=== PATIENT | male | born 1940 | race Caucasian/White ===

== ENCOUNTER 2017-10-12 04:14 | Emergency (ER) | payer MEDICARE, BC ==
[2017-10-12 04:37] VITALS: BP 150/65
--- NOTE | 2017-10-12 04:43 | EDM.PDOC ---
ED HPI GENERAL MEDICAL PROBLEM - General Chief Complaint: Respiratory Problem Stated Complaint: HEAVY CHEST [id number] Time Seen by Provider: 10/12/17 04:40 Source of Information: Reports: Patient History Limitations: Reports: No Limitations - History of Present Illness INITIAL COMMENTS - FREE TEXT/NARRATIVE: just got back in town from travelling from [place] where he was Dx with small right pleural effusion, en route did stop at a clinic and Dx with large pleural effusion. no CP but feels heavy & sob. Bilateral Hand Pain Score (Numeric/FACES): 4 - Related Data Allergies Allergy/AdvReac Type Severity Reaction Status Date / Time chlorhexidine Allergy Itching Verified 10/12/17 04:20 Home Meds: Home Meds Aspirin 325 mg PO DAILY 10/12/14 [History] Carvedilol 25 mg PO BID 10/12/14 [History] ClonazePAM [KlonoPIN] 0.25 mg PO BEDTIME 10/12/14 [History] Digoxin 125 mcg PO DAILY 10/12/14 [History] Furosemide 40 mg PO DAILY 10/12/14 [History] Levothyroxine 200 mcg PO ACBREAKFAST 10/12/14 [History] Qkuvb-3-Pryi Ethyl Esters [Lovaza] 2 gm PO BID 10/12/14 [History] Potassium Chloride [Klor-Con] 20 meq PO DAILY 10/12/14 [History] atorvaSTATin [Lipitor] 10 mg PO BEDTIME 10/12/14 [History] glipiZIDE [Glucotrol] 10 mg PO BID 10/12/14 [History] rOPINIRole [Requip] 1 mg PO DAILY 10/12/14 [History] Acetaminophen [Tylenol Arthritis Pain] 650 mg PO BID 10/12/17 [History] Amiodarone [Cordarone] 200 mg PO DAILY 10/12/17 [History] Benazepril [Lotensin] 5 mg PO DAILY 10/12/17 [History] Dextran 70/Hypromellose [Artificial Tears] 1 each OP BID 10/12/17 [History] Hydrocodone/Acetaminophen [Hydrocodon-Acetaminophn 10-325] 1 tab PO BID [History] Insulin Detemir [Levemir Flextouch] 6 unit SQ BEDTIME 10/12/17 [History] Nitroglycerin 0.4 mg SL ASDIRECTED 10/12/17 [History] Tamsulosin [Tamsulosin 24 Hr] 0.4 mg PO DAILY 10/12/17 [History] amLODIPine Besylate [Amlodipine Besylate] 5 mg PO DAILY 10/12/17 [History] hydrALAZINE HCl [Hydralazine HCl] 37.5 mg PO BID 10/12/17 [History] metOLazone [Metolazone] 2.5 mg PO DAILY PRN 10/12/17 [History] Past Medical History HEENT History: Reports: Impaired Vision Musculoskeletal History: Reports: Arthritis Other Neuro History: restless leg syndrome Endocrine/Metabolic History: Reports: Diabetes, Type II, Hypothyroidism Social & Family History - Family History Family Medical History: Noncontributory - Tobacco Use Smoking Status *Q: Former Smoker Used Tobacco, but Quit: Yes Month/Year Tobacco Last Used: 09/1992 - Caffeine Use Caffeine Use: Reports: Soda - Recreational Drug Use Recreational Drug Use: No ED ROS GENERAL - Review of Systems Review Of Systems: ROS reveals no pertinent complaints other than HPI. ED EXAM, GENERAL - Physical Exam Exam: See Below Exam Limited By: No Limitations General Appearance: Alert, WD/WN, Anxious, Mild Distress Ears: Hearing Grossly Normal Throat/Mouth: Normal Voice, No Airway Compromise Head: Atraumatic Neck: Non-Tender, Full Range of Motion Respiratory/Chest: No Accessory Muscle Use, Decreased Breath Sounds, Rhonchi, Other (right decrease BS) Cardiovascular: Regular Rate, Rhythm GI/Abdominal: Soft, Non-Tender Extremities: Pedal Edema Neurological: Alert, Oriented, Normal Cognition, Normal Gait, No Motor/Sensory Deficits Psychiatric: Normal Affect, Normal Mood Skin Exam: Warm, Dry, Normal Color Lymphatic: No Adenopathy Course - Vital Signs Last Recorded V/S: Last Vital Signs Temp 36.9 C 10/12/17 04:23 Pulse 71 10/12/17 04:23 Resp 20 10/12/17 04:23 BP 150/65 H 10/12/17 04:23 Pulse Ox 91 L 10/12/17 04:23 - Orders/Labs/Meds Orders: Active Orders 24 hr Category Date Time Status EKG 12 Lead [EKG Documentation Completion] [RC] STAT Care 10/12/17 04:36 Active Chest 1V Frontal [CR] Urgent Exams 10/12/17 04:37 Taken Labs: Laboratory Tests 10/12/17 10/12/17 Range/Units 04:46 04:46 WBC 13.9 H (5.0-10.0) 10^3/uL RBC 5.22 (4.6-6.2) 10^6/uL Hgb 15.0 (14.0-18.0) g/dL Hct 46.5 (40.0-54.0) % MCV 89.1 (80-100) fL MCH 28.7 (27.0-34.0) pg MCHC 32.3 L (33.0-35.0) g/dL Plt Count 204 (150-450) 10^3/uL Neut % (Auto) 74.3 (42.2-75.2) % Lymph % (Auto) 10.7 L (20.5-50.1) % [place] % (Auto) 9.9 H (2-8) % Eos % (Auto) 5.0 H (1.0-3.0) % Baso % (Auto) 0.1 (0.0-1.0) % Sodium 135 (135-145) mmol/L Potassium 4.1 (3.6-5.0) mmol/L Chloride 101 (101-111) mmol/L Carbon Dioxide 24.0 (21.0-31.0) mmol/L Anion Gap 14.1 BUN 17 (7-18) mg/dL Creatinine 1.2 (0.6-1.3) mg/dL Est Cr Clr Drug Dosing 52.37 mL/min Estimated GFR (MDRD) 59 BUN/Creatinine Ratio 14.16 Glucose 190 H (74-105) mg/dL Calcium 8.7 (8.4-10.2) mg/dl Total Bilirubin 0.7 (0.2-1.0) mg/dL AST 21 (10-42) IU/L ALT 19 (10-60) IU/L Alkaline Phosphatase 81 (42-121) IU/L Troponin I < 0.02 (0.00-0.02) ng/ml B-Natriuretic Peptide 67 (0-100) pg/ml Total Protein 7.2 (6.7-8.2) g/dl Albumin 3.7 (3.2-5.5) g/dl Globulin 3.5 Albumin/Globulin Ratio 1.06 - Re-Assessments/Exams Free Text/Narrative Re-Assessment/Exam: 10/12/17 05:[address] Goss who kindly accepted pt. Departure - Departure Time of Disposition: 05:53 Disposition: DC/Tfer to Acute Hospital 02 Condition: Fair Clinical Impression: Pleural effusion - Discharge Information Forms: Interfacility Transfer EMTALA - My Orders Last 24 Hours: My Active Orders 10/12/17 04:36 EKG 12 Lead [EKG Documentation Completion] [RC] STAT 10/12/17 04:37 Chest 1V Frontal [CR] Urgent - Assessment/Plan Last 24 Hours: My Active Orders 10/12/17 04:36 EKG 12 Lead [EKG Documentation Completion] [RC] STAT 10/12/17 04:37 Chest 1V Frontal [CR] Urgent
[2017-10-12 05:11] LABS: ANION GAP 14.1; CHLORIDE,CL 101 mmol/L (101-111); SODIUM,NA 135 mmol/L (135-145)
--- NOTE | 2017-10-13 16:59 | EKG ---
10/12/2017 - ANTONIO STOUT - TIME: 05:04 a.m. FINDINGS: As per reading, atrial sinus ventricular paced complexes. [facility] /[id number]
== END 2017-10-12 07:15 ==
LOC: DL.ED 04:14
DX: J90 Pleural effusion, not elsewhere classified (principal); E11.9 Type 2 diabetes mellitus without complications; Z88.8 Allergy status to other drugs, medicaments and biological substances; Z79.899 Other long term (current) drug therapy; Z79.82 Long term (current) use of aspirin; Z87.891 Personal history of nicotine dependence
CPT/HCPCS: 36415; 71045; 80053; 83880; 84484; 85025; 93005; 93010; 99284; 99285

== ENCOUNTER 2018-03-17 17:02 | Emergency (ER) | payer MEDICARE, BC ==
[2018-03-17 17:15] VITALS: BP 155/66
--- NOTE | 2018-03-17 17:45 | EDM.PDOC ---
ED HPI GENERAL MEDICAL PROBLEM - General Stated Complaint: AMBULANCE Time Seen by Provider: 03/17/18 17:30 Source of Information: Reports: Patient History Limitations: Reports: No Limitations - History of Present Illness INITIAL COMMENTS - FREE TEXT/NARRATIVE: This 77 yo male patient was brought to the ED due to increased shortness of breath and dizziness that started today. EMS reports the patient's oxygen saturation was 50% upon arrival. The patient reports he got up to go to the bathroom and shower at about noon today when he fell due to weakness. The patient reports he did make it back to bed and took a nap. When he got up from his nap, the patient reports increased shortness of breath and weakness. The patient reports he does have lung cancer. The patient reports that he is being treated by Dr. Gu, but he was too weak to have treatment in January or the beginning of February. The patient is supposed to see Dr. Gu again in March. Onset: Today Duration: Constant Location: Reports: Generalized Quality: Reports: Other Severity: Moderate Improves with: Reports: None Worsens with: Reports: None Associated Symptoms: Reports: Shortness of Breath, Weakness Right Thoracic Pain Score (Numeric/FACES): 7 - Related Data Allergies Allergy/AdvReac Type Severity Reaction Status Date / Time chlorhexidine Allergy Itching Verified 10/12/17 04:20 Home Meds: Home Meds Aspirin 325 mg PO DAILY 10/12/14 [History] Carvedilol 25 mg PO BID 10/12/14 [History] ClonazePAM [KlonoPIN] 0.25 mg PO BEDTIME 10/12/14 [History] Digoxin 125 mcg PO DAILY 10/12/14 [History] Furosemide 40 mg PO DAILY 10/12/14 [History] Levothyroxine 200 mcg PO ACBREAKFAST 10/12/14 [History] Tptyp-5-Sijv Ethyl Esters [Lovaza] 2 gm PO BID 10/12/14 [History] Potassium Chloride [Klor-Con] 20 meq PO DAILY 10/12/14 [History] atorvaSTATin [Lipitor] 10 mg PO BEDTIME 10/12/14 [History] glipiZIDE [Glucotrol] 10 mg PO BID 10/12/14 [History] rOPINIRole [Requip] 1 mg PO DAILY 10/12/14 [History] Acetaminophen [Tylenol Arthritis Pain] 650 mg PO BID 10/12/17 [History] Amiodarone [Cordarone] 200 mg PO DAILY 10/12/17 [History] Benazepril [Lotensin] 5 mg PO DAILY 10/12/17 [History] Dextran 70/Hypromellose [Artificial Tears] 1 each OP BID 10/12/17 [History] Hydrocodone/Acetaminophen [Hydrocodon-Acetaminophn 10-325] 1 tab PO BID [History] Insulin Detemir [Levemir Flextouch] 6 unit SQ BEDTIME 10/12/17 [History] Nitroglycerin 0.4 mg SL ASDIRECTED 10/12/17 [History] Tamsulosin [Tamsulosin 24 Hr] 0.4 mg PO DAILY 10/12/17 [History] amLODIPine Besylate [Amlodipine Besylate] 5 mg PO DAILY 10/12/17 [History] hydrALAZINE HCl [Hydralazine HCl] 37.5 mg PO BID 10/12/17 [History] metOLazone [Metolazone] 2.5 mg PO DAILY PRN 10/12/17 [History] Past Medical History HEENT History: Reports: Impaired Vision Cardiovascular History: Reports: Heart Failure, High Cholesterol, Hypertension, AR, Stents, Other (See Below) Other Cardiovascular History: chronic pedal edema Respiratory History: Reports: Other (See Below) Other Respiratory History: Lung Ca Genitourinary History: Reports: Renal Disease Musculoskeletal History: Reports: Arthritis Other Neuro History: restless leg syndrome Endocrine/Metabolic History: Reports: Diabetes, Type II, Hypothyroidism Oncologic (Cancer) History: Reports: Lung - Past Surgical History Cardiovascular Surgical History: Reports: AICD, Pacer Social & Family History - Family History Family Medical History: Noncontributory - Tobacco Use Smoking Status *Q: Never Smoker Second Hand Smoke Exposure: No - Caffeine Use Caffeine Use: Reports: Soda - Recreational Drug Use Recreational Drug Use: No ED ROS GENERAL - Review of Systems Review Of Systems: ROS reveals no pertinent complaints other than HPI. ED EXAM, GENERAL - Physical Exam Exam: See Below Exam Limited By: No Limitations General Appearance: Alert, WD/WN, Moderate Distress Eye Exam: Bilateral Eye: EOMI, Normal Inspection, PERRL Ears: Normal External Exam, Normal Canal, Hearing Grossly Normal, Normal TMs Nose: Normal Inspection, Normal Mucosa, No Blood Throat/Mouth: Normal Inspection, Normal Lips, Normal Teeth, Normal Gums, Normal Oropharynx, Normal Voice, No Airway Compromise Head: Atraumatic, Normocephalic Neck: Normal Inspection, Supple, Non-Tender, Full Range of Motion Respiratory/Chest: Decreased Breath Sounds, Rhonchi (diffuse) Cardiovascular: Normal Peripheral Pulses, Regular Rate, Rhythm, No Edema, No Gallop, No JVD, No Murmur, No Rub GI/Abdominal: Normal Bowel Sounds, Soft, Non-Tender, No Organomegaly, No Distention, No Abnormal Bruit, No Mass (Male) Exam: Deferred Rectal (Males) Exam: Deferred Back Exam: Normal Inspection, Full Range of Motion, NT Extremities: Normal Inspection, Normal Range of Motion, Non-Tender, Normal Capillary Refill, No Pedal Edema Neurological: Alert, Oriented, CN II-XII Intact, Normal Cognition, Normal Gait, Normal Reflexes, No Motor/Sensory Deficits Psychiatric: Normal Affect, Normal Mood Skin Exam: Warm, Dry, Intact, Normal Color, No Rash Lymphatic: No Adenopathy Course - Vital Signs Last Recorded V/S: Last Vital Signs Temp 37.8 C 03/17/18 18:49 Pulse 92 03/17/18 17:08 Resp 18 03/17/18 17:08 BP 155/66 H 03/17/18 17:08 Pulse Ox - Orders/Labs/Meds Orders: Active Orders 24 hr Category Date Time Status EKG Documentation Completion [RC] URGENT Care 03/17/18 17:11 Ordered Chest 1V Frontal [CR] Urgent Exams 03/17/18 17:11 Ordered ABG [BLOOD GAS ARTERIAL] [BG] Stat Lab 03/17/18 18:43 Ordered CULTURE BLOOD [BC] Stat Lab 03/17/18 17:12 Ordered CULTURE BLOOD [BC] Stat Lab 03/17/18 17:15 Ordered Labs: Laboratory Tests 03/17/18 03/17/18 03/17/18 Range/Units 17:23 17:23 17:23 WBC 11.6 H (5.0-10.0) 10^3/uL RBC 4.49 L (4.6-6.2) 10^6/uL Hgb 13.1 L D (14.0-18.0) g/dL Hct 40.9 (40.0-54.0) % MCV 91.1 (80-100) fL MCH 29.2 (27.0-34.0) pg MCHC 32.0 L (33.0-35.0) g/dL Plt Count 185 (150-450) 10^3/uL Neut % (Auto) 87.1 H (42.2-75.2) % Lymph % (Auto) 6.3 L (20.5-50.1) % [place] % (Auto) 6.1 (2-8) % Eos % (Auto) 0.2 L (1.0-3.0) % Baso % (Auto) 0.3 (0.0-1.0) % Sodium 133 L (135-145) mmol/L Potassium 5.1 H (3.6-5.0) mmol/L Chloride 98 L (101-111) mmol/L Carbon Dioxide 20.0 L (21.0-31.0) mmol/L Anion Gap 20.1 BUN 25 H (7-18) mg/dL Creatinine 1.4 H (0.6-1.3) mg/dL Est Cr Clr Drug Dosing 42.52 mL/min Estimated GFR (MDRD) 49 BUN/Creatinine Ratio 17.85 Glucose 267 H (74-105) mg/dL Lactic Acid 4.0 H (0.5-2.2) mmol/L Calcium 8.5 (8.4-10.2) mg/dl Total Bilirubin 1.1 H (0.2-1.0) mg/dL AST 43 H (10-42) IU/L ALT 17 (10-60) IU/L Alkaline Phosphatase 56 (42-121) IU/L Troponin I 0.08 H* (0.00-0.02) ng/ml B-Natriuretic Peptide 371 H (0-100) pg/ml Total Protein 6.8 (6.7-8.2) g/dl Albumin 2.7 L (3.2-5.5) g/dl Globulin 4.1 Albumin/Globulin Ratio 0.66 Meds: Medications Discontinued Medications Generic Name Dose Route Start Last Admin Trade Name Freq PRN Reason Stop Dose Admin Acetaminophen 650 mg 03/17/18 17:54 03/17/18 17:58 Tylenol PO 03/17/18 17:55 650 mg NOW ONE Administration Departure - Departure Time of Disposition: 19:01 Disposition: DC/Tfer to Acute Hospital 02 Condition: Fair Clinical Impression: Pneumonia Qualifiers: Pneumonia type: due to unspecified organism Laterality: unspecified laterality Lung location: unspecified part of lung Qualified Code(s): J18.9 - Pneumonia, unspecified organism - Discharge Information *PRESCRIPTION DRUG MONITORING PROGRAM REVIEWED*: Not Applicable *COPY OF PRESCRIPTION DRUG MONITORING REPORT IN PATIENT KENIA: Not Applicable Forms: Interfacility Transfer EMTALA Care Plan Goals: Discussed the patient's history, examination, lab, x-ray and EKG results with Dr Yancey. Dr. Yancey accepted the patient for continued evaluation and further management as an inpatient at [facility] in [place]. The patient will be transported by [facility]. - My Orders Last 24 Hours: My Active Orders 03/17/18 17:11 EKG Documentation Completion [RC] URGENT Chest 1V Frontal [CR] Urgent 03/17/18 17:12 CULTURE BLOOD [BC] Stat 03/17/18 17:15 CULTURE BLOOD [BC] Stat 03/17/18 18:43 ABG [BLOOD GAS ARTERIAL] [BG] Stat - Assessment/Plan Last 24 Hours: My Active Orders 03/17/18 17:11 EKG Documentation Completion [RC] URGENT Chest 1V Frontal [CR] Urgent 03/17/18 17:12 CULTURE BLOOD [BC] Stat 03/17/18 17:15 CULTURE BLOOD [BC] Stat 03/17/18 18:43 ABG [BLOOD GAS ARTERIAL] [BG] Stat
[2018-03-17 17:52] LABS: ANION GAP 20.1
[2018-03-17] MEDS: Acetaminophen 325 MG Tab PO ONE (17:58)
[2018-03-17 18:58] LABS: BASE EXCESS ARTERIAL 1 mmol/L ((-2)-(+3)); BICARBONATE,ARTERIAL 24.3 mmol/L (22-26); O2 DELIVERY DEVICE SIMPLE MASK; O2 SATURATION ARTERIAL 95 % (95-100); PCO2 ARTERIAL 35 mmHg (35-45); PO2 ARTERIAL 74 mmHg (70-100)
[2018-03-17 19:01] LABS: ALLEN TEST POSITIVE; O2 FLOW RATE 10
== END 2018-03-17 19:35 ==
LOC: DL.ED 17:02
DX: J18.9 Pneumonia, unspecified organism (principal); I50.9 Heart failure, unspecified; I25.2 Old myocardial infarction; Z95.5 Presence of coronary angioplasty implant and graft; C34.90 Malignant neoplasm of unspecified part of unspecified bronchus or lung; Z79.4 Long term (current) use of insulin; Z79.82 Long term (current) use of aspirin; Z79.899 Other long term (current) drug therapy; I11.0 Hypertensive heart disease with heart failure
CPT/HCPCS: 36415; 36600; 71045; 80053; 82803; 83605; 83880; 84484; 85025; 87040; 93005; 99285; A9270

== ENCOUNTER 2019-02-09 03:44 | Emergency (ER) | payer MEDICARE, BC ==
[2019-02-09] MEDS ORDERED: predniSONE 20 MG Tab PO ONE (03:45)
[2019-02-09] MEDS ORDERED: Albuterol/Ipratropium 3.0-0.5 MG/3 ML Neb Soln INH ONE (03:45)
[2019-02-09 04:03] VITALS: BP 138/75; PULSE 69
--- NOTE | 2019-02-09 04:13 | EDM.PDOC ---
ED HPI GENERAL MEDICAL PROBLEM - General Chief Complaint: Respiratory Problem Stated Complaint: TROUBLE BREATHING Time Seen by Provider: 02/09/19 04:08 Source of Information: Reports: Patient, RN History Limitations: Reports: No Limitations - History of Present Illness INITIAL COMMENTS - FREE TEXT/NARRATIVE: 29-year-old male who presents to the ER with complaints of shortness of breath. Patient reports shortness of breath began 4 hours ago. He reports a history of lung cancer which she states is in remission. Patient states he was in [place] at the beginning of the month and was checked with all his lab results and chest Xray normal. He reports he was given an albuterol inhaler which he used 2 hours prior to his ER visit with no relief. He does not smoke.he denies any fevers, chills, chest pain, palpitations, cough or leg swelling at this time. He does also admit to mild shortness of breath on a daily basis. Treatments LACTATION CONSULTANT: Reports: Breathing Treatments Anterior Chest Pain Score (Numeric/FACES): 3 Right Lower Back Pain Score (Numeric/FACES): 4 - Related Data Allergies Allergy/AdvReac Type Severity Reaction Status Date / Time chlorhexidine Allergy Itching Verified 02/09/19 04:04 Home Meds: Home Meds Aspirin 325 mg PO DAILY 10/12/14 [History] ClonazePAM [KlonoPIN] 0.25 mg PO BEDTIME 10/12/14 [History] Digoxin 125 mcg PO DAILY 10/12/14 [History] Furosemide 40 mg PO DAILY 10/12/14 [History] Levothyroxine 200 mcg PO ACBREAKFAST 10/12/14 [History] Swira-6-Zkcl Ethyl Esters [Lovaza] 2 gm PO BID 10/12/14 [History] Potassium Chloride [Klor-Con] 20 meq PO DAILY 10/12/14 [History] atorvaSTATin [Lipitor] 10 mg PO BEDTIME 10/12/14 [History] carvediloL [Carvedilol] 25 mg PO BID 10/12/14 [History] glipiZIDE [Glucotrol] 10 mg PO BID 10/12/14 [History] rOPINIRole [Requip] 1 mg PO DAILY 10/12/14 [History] Acetaminophen [Tylenol Arthritis Pain] 650 mg PO BID 10/12/17 [History] Amiodarone [Cordarone] 200 mg PO DAILY 10/12/17 [History] Benazepril [Lotensin] 5 mg PO DAILY 10/12/17 [History] Dextran 70/Hypromellose [Artificial Tears] 1 each OP BID 10/12/17 [History] Hydrocodone/Acetaminophen [Hydrocodon-Acetaminophn 10-325] 1 tab PO BID [History] Insulin Detemir [Levemir Flextouch] 6 unit SQ BEDTIME 10/12/17 [History] Nitroglycerin 0.4 mg SL ASDIRECTED 10/12/17 [History] Tamsulosin [Tamsulosin 24 Hr] 0.4 mg PO DAILY 10/12/17 [History] amLODIPine Besylate [Amlodipine Besylate] 5 mg PO DAILY 10/12/17 [History] hydrALAZINE HCl [Hydralazine HCl] 37.5 mg PO BID 10/12/17 [History] metOLazone [Metolazone] 2.5 mg PO DAILY PRN 10/12/17 [History] Past Medical History HEENT History: Reports: Impaired Vision Cardiovascular History: Reports: Heart Failure, High Cholesterol, Hypertension, AR, Stents, Other (See Below) Other Cardiovascular History: chronic pedal edema Respiratory History: Reports: Other (See Below) Other Respiratory History: Lung Ca Genitourinary History: Reports: Renal Disease Musculoskeletal History: Reports: Arthritis Other Neuro History: restless leg syndrome Endocrine/Metabolic History: Reports: Diabetes, Type II, Hypothyroidism Oncologic (Cancer) History: Reports: Lung - Past Surgical History Cardiovascular Surgical History: Reports: AICD, Pacer Social & Family History - Family History Family Medical History: Noncontributory - Tobacco Use Smoking Status *Q: Former Smoker Used Tobacco, but Quit: No - Caffeine Use Caffeine Use: Reports: Soda - Recreational Drug Use Recreational Drug Use: No ED ROS GENERAL - Review of Systems Review Of Systems: Comprehensive ROS is negative, except as noted in HPI. ED EXAM, GENERAL - Physical Exam Exam: See Below Exam Limited By: No Limitations General Appearance: Alert, WD/WN, No Apparent Distress Eye Exam: Bilateral Eye: PERRL Ears: Normal External Exam, Normal Canal, Hearing Grossly Normal, Normal TMs Nose: Normal Inspection, Normal Mucosa, No Blood Throat/Mouth: Normal Inspection, Normal Lips, Normal Teeth, Normal Gums, Normal Oropharynx, Normal Voice, No Airway Compromise Head: Atraumatic, Normocephalic Neck: Normal Inspection, Supple, Non-Tender, Full Range of Motion Respiratory/Chest: No Respiratory Distress, Chest Non-Tender, Crackles (noted in bilateral lower lobes) Cardiovascular: Normal Peripheral Pulses, Regular Rate, Rhythm, Other (pace rhythm) Neurological: Alert, Oriented, Normal Cognition, Normal Gait, No Motor/Sensory Deficits Psychiatric: Normal Affect, Normal Mood Skin Exam: Warm, Intact Lymphatic: No Adenopathy Course - Vital Signs Last Recorded V/S: Last Vital Signs Temp 96.7 F 02/09/19 03:55 Pulse 69 02/09/19 03:55 Resp 19 02/09/19 03:55 BP 138/75 02/09/19 03:55 Pulse Ox 95 02/09/19 03:55 - Orders/Labs/Meds Orders: Active Orders 24 hr Category Date Time Status Chest w Cont [CT] Urgent Exams 02/09/19 05:23 Stop Req Labs: Laboratory Tests 02/09/19 Range/Units 05:32 Sodium 138 (135-145) mmol/L Potassium 3.8 (3.6-5.0) mmol/L Chloride 105 (101-111) mmol/L Carbon Dioxide 22.0 (21.0-31.0) mmol/L Anion Gap 14.8 BUN 28 H (7-18) mg/dL Creatinine 1.2 (0.6-1.3) mg/dL Est Cr Clr Drug Dosing 50.73 mL/min Estimated GFR (MDRD) 59 Glucose 110 H (74-105) mg/dL Calcium 8.6 (8.4-10.2) mg/dl - Radiology Interpretation Free Text/Narrative:: PROCEDURE INFORMATION: Exam: XR Chest, 2 Views Exam date and time: 02/09/2019 4:39 AM Age: 78 years old Clinical indication: Shortness of breath; Prior surgery; Surgery date: 6+ months ; Surgery type: Pacemaker 2006 replaced in 2012 TECHNIQUE: Imaging protocol: XR of the chest Views: 2 views. COMPARISON: CR Chest 1V Frontal 03/17/2018 5:16 PM FINDINGS: Tubes, catheters and devices: A pacemaker defibrillator is placed via the left subclavian vein. Lungs: There are some linear and patchy opacities present in the lower hemithoraces bilaterally, findings could represent mild pulmonary edema. Pleural space: There is some haziness seen within the right lower hemithorax likely representing a small pleural effusion versus pleural thickening within the major fissure. Heart/Mediastinum: Unremarkable. No cardiomegaly. Bones/joints: Unremarkable. IMPRESSION: 1. Linear and patchy opacities in the lower hemithoraces bilaterally may represent mild pulmonary edema. 2. Probable pleural thickening or fluid seen within the major fissure on the right. - Re-Assessments/Exams Free Text/Narrative Re-Assessment/Exam: Reviewed results of chest xray with patient. Oxygen saturation on room air is 98 %. DuoNeb 1 vail administered every 4 hours prn and Prednisone 40 mg daily x 5 days send home with patient. Symptoms to return to the ER review with patient Departure - Departure Time of Disposition: 07:52 Disposition: Home, W Home Health Agency 06 Clinical Impression: SOB (shortness of breath) - Discharge Information *PRESCRIPTION DRUG MONITORING PROGRAM REVIEWED*: No *COPY OF PRESCRIPTION DRUG MONITORING REPORT IN PATIENT KENIA: No Instructions: Shortness of Breath, Adult, [id number] Forms: ED Department Discharge Additional Instructions: Follow up with PCP in one to two days. Sepsis Event Note - Evaluation Sepsis Screening Result: No Definite Risk - Focused Exam Vital Signs: Vital Signs Temp Pulse Resp BP Pulse Ox 02/09/19 03:55 96.7 F 69 19 138/75 95 Date Exam was Performed: 02/09/19 Time Exam was Performed: 07:51 - My Orders Last 24 Hours: My Active Orders 02/09/19 05:23 Chest w Cont [CT] Urgent - Assessment/Plan Last 24 Hours: My Active Orders 02/09/19 05:23 Chest w Cont [CT] Urgent
[2019-02-09 05:59] LABS: ANION GAP 14.8
[2019-02-09] MEDS ORDERED: Albuterol/Ipratropium 3.0-0.5 MG/3 ML Neb Soln ONE (07:53)
[2019-02-09] MEDS ORDERED: predniSONE 20 MG Tab ONE (07:54)
== END 2019-02-09 08:14 | disposition home or self-care (01) ==
LOC: DL.ED 03:44
DX: R06.02 Shortness of breath (principal); I11.0 Hypertensive heart disease with heart failure; I50.9 Heart failure, unspecified; E11.9 Type 2 diabetes mellitus without complications; E78.00 Pure hypercholesterolemia, unspecified; I25.2 Old myocardial infarction; E03.9 Hypothyroidism, unspecified; Z79.82 Long term (current) use of aspirin; Z79.84 Long term (current) use of oral hypoglycemic drugs; Z87.891 Personal history of nicotine dependence; Z79.899 Other long term (current) drug therapy; Z88.8 Allergy status to other drugs, medicaments and biological substances
CPT/HCPCS: 36415; 71046; 80048; 99283; 99285; A9270; J7620-GY

== ENCOUNTER 2019-08-10 16:35 | Emergency (ER) | payer MEDICARE, BC ==
--- NOTE | 2019-08-10 18:14 | EDM.PDOC ---
<Spenser Isbell - Last Filed: 08/10/19 19:53> ED HPI GENERAL MEDICAL PROBLEM - General Chief Complaint: Respiratory Problem Stated Complaint: HARD TIME BREATHING Time Seen by Provider: 08/10/19 18:13 - Related Data Allergies Allergy/AdvReac Type Severity Reaction Status Date / Time chlorhexidine Allergy Itching Verified 08/10/19 16:55 pneumococcal vaccine Allergy Cannot Verified 08/10/19 16:55 Remember Home Meds: Home Meds ClonazePAM [KlonoPIN] 0.25 mg PO BEDTIME 10/12/14 [History] Digoxin 125 mcg PO DAILY 10/12/14 [History] Furosemide 40 mg PO BID 10/12/14 [History] Levothyroxine 200 mcg PO ACBREAKFAST 10/12/14 [History] Ecddh-2-Vzyf Ethyl Esters [Lovaza] 2 gm PO BID 10/12/14 [History] atorvaSTATin [Lipitor] 10 mg PO BEDTIME 10/12/14 [History] carvediloL [Carvedilol] 12.5 mg PO BID 10/12/14 [History] rOPINIRole [Requip] 1 mg PO DAILY 10/12/14 [History] Acetaminophen [Tylenol Arthritis Pain] 650 mg PO BID 10/12/17 [History] Amiodarone [Cordarone] 200 mg PO DAILY 10/12/17 [History] Hydrocodone/Acetaminophen [Hydrocodon-Acetaminophn 10-325] 10 - 325 tab PO TID 10/12/17 [History] Nitroglycerin 0.4 mg SL ASDIRECTED 10/12/17 [History] Tamsulosin [Tamsulosin 24 Hr] 0.4 mg PO BEDTIME 10/12/17 [History] Aspirin [Adult Low Dose Aspirin EC] 81 mg PO DAILY 02/28/19 [History] Calcium Carbonate [Calcium] 600 mg PO BIDMEALS 02/28/19 [History] Potassium Chloride [Klor-Con 10] 20 meq PO DAILY 02/28/19 [History] Albuterol [Ventolin HFA] 2 puff IN Q6HR PRN 08/10/19 [History] Carboxymethylcellulose Sodium [Thera Tears] 1 drop EYEBOTH DAILY 08/10/19 [H istory] Docusate Sodium/Sennosides [Senokot-S] 2 tab PO BEDTIME 08/10/19 [History] Folic Acid 1 mg PO DAILY 08/10/19 [History] Hydrocortisone [Hydrocortisone 1% Crm] 2 applic TOP BID 08/10/19 [History] Mirtazapine 7.5 mg PO BEDTIME 08/10/19 [History] Ondansetron [Zofran Odt] 8 mg PO Q6H PRN 08/10/19 [History] Sacubitril/Valsartan [Entresto 49 mg-51 mg Tablet] 1 tab PO Q12HR 08/10/19 [History] dexAMETHasone [Dexamethasone] 4 mg PO BIDMEALS 08/10/19 [History] Course - Re-Assessments/Exams Free Text/Narrative Re-Assessment/Exam: 08/10/19 19:53 Discussed the patient's lab results and x-ray results with the patient. The patient reports that he did not have a lobectomy, but had fluid drained from his right lower lung. The patient reports he has had fluid in that area since that time. The patient reports his BNP has been elevated (3800 in June). The patient and his do not want to be admitted or transferred. They agreed to IV diuretics and IV antibiotics followed by an oral antibiotic for bronchitis. They would like to follow-up with Dr. Barrientos within the week for continued evaluation and management. The patient does understand his elevated D-dimer level and the inability to look for a blood clot in his lungs due to his kidney function and elevated BNP. Departure - Departure Time of Disposition: 19:58 Disposition: Home, Self-Care 01 Condition: Fair Clinical Impression: Elevated brain natriuretic peptide (BNP) level, Bronchitis - Discharge Information *PRESCRIPTION DRUG MONITORING PROGRAM REVIEWED*: Not Applicable *COPY OF PRESCRIPTION DRUG MONITORING REPORT IN PATIENT KENIA: Not Applicable Instructions: Acute Bronchitis, Adult, [id number] Forms: ED Department Discharge Care Plan Goals: The patient was advised of the examination, lab and x-ray results during the visit. The patient was given IV lasix and IV Rocephin while in the ED. The patient was discharged with a script for Azithromycin (250 mg) #6 to take 2 by mouth on day 1 and 1 by mouth on days 2-5. The patient should follow-up with his primary care facility within the week. If the patient has any additional symptoms or concerns, the patient should either return to the emergency department or visit his primary care facility. <Harsha Mcdonough - Last Filed: 08/11/19 08:16> ED HPI GENERAL MEDICAL PROBLEM - General Source of Information: Reports: Patient History Limitations: Reports: No Limitations - History of Present Illness INITIAL COMMENTS - FREE TEXT/NARRATIVE: Patient comes emergency department today with complaints of shortness of breath. Patient has a history of lung cancer and he had a lobectomy on the right lower lobe in the past. He does chronically struggle with shortness of breath intermittently although he has noticed for the past day and a half or so he has been more short of breath all the time. Especially when he is doing physical activity. He feels more weak than he typically does generalized. He has had no chest pain. No wheezing. No cough or congestion. No fever no chills. He has not been exposed to anyone ill or anyone with COVID. He did vomit a couple of days ago but he has no nausea currently. Does not smoke. No syncope dizziness or vertigo. Past Medical History HEENT History: Reports: Impaired Vision Cardiovascular History: Reports: Heart Failure, High Cholesterol, Hypertension, [place], Stents, Other (See Below) Other Cardiovascular History: chronic pedal edema Respiratory History: Reports: Other (See Below) Other Respiratory History: Lung Ca Genitourinary History: Reports: Renal Disease Musculoskeletal History: Reports: Arthritis Other Neuro History: restless leg syndrome Endocrine/Metabolic History: Reports: Diabetes, Type II, Hypothyroidism Oncologic (Cancer) History: Reports: Lung - Past Surgical History Cardiovascular Surgical History: Reports: AICD, Pacer Social & Family History - Family History Family Medical History: Noncontributory - Tobacco Use Smoking Status *Q: Never Smoker Second Hand Smoke Exposure: No - Caffeine Use Caffeine Use: Reports: None - Recreational Drug Use Recreational Drug Use: No ED ROS GENERAL - Review of Systems Review Of Systems: Comprehensive ROS is negative, except as noted in HPI. ED EXAM, GENERAL - Physical Exam Exam: See Below Exam Limited By: No Limitations General Appearance: Alert, WD/WN, No Apparent Distress Eye Exam: Bilateral Eye: EOMI Ears: Normal External Exam Nose: Normal Inspection Throat/Mouth: Normal Inspection, Normal Lips, Normal Oropharynx Head: Atraumatic, Normocephalic Neck: Normal Inspection, Supple, Non-Tender Respiratory/Chest: No Respiratory Distress, No Accessory Muscle Use, Chest Non-Tender, Decreased Breath Sounds (in the RLL. ), Rhonchi (RLL). No: Lungs Clear, Crackles, Rales, Wheezing, Accessory Muscle Use, Retractions Cardiovascular: Normal Peripheral Pulses, Regular Rate, Rhythm GI/Abdominal: Normal Bowel Sounds, Soft, Non-Tender (Male) Exam: Deferred Rectal (Males) Exam: Deferred Back Exam: Normal Inspection Extremities: Normal Inspection, Normal Range of Motion, Normal Capillary Refill Neurological: Alert, Oriented, Normal Cognition, No Motor/Sensory Deficits Psychiatric: Normal Affect, Normal Mood Skin Exam: Warm, Dry, Intact, Normal Color, No Rash EKG INTERPRETATION EKG Date: 08/10/19 Time: 18:34 Rhythm: Other (AV paced) Rate (Beats/Min): 69 [place]: Normal P-Wave: Present QRS: Wide Comparison: No Change Course - Vital Signs Last Recorded V/S: Last Vital Signs Temp 97.5 F 08/10/19 20:55 Pulse 70 08/10/19 20:55 Resp 18 08/10/19 20:55 BP 130/80 08/10/19 20:55 Pulse Ox 89 L 08/10/19 20:55 - Orders/Labs/Meds Orders: Active Orders 24 hr Category Date Time Status EKG Documentation Completion [RC] STAT Care 08/10/19 18:14 Active RT Aerosol Therapy [RC] ASDIRECTED Care 08/10/19 18:24 Active Labs: Laboratory Tests 08/10/19 08/10/19 08/10/19 Range/Units 18:31 18:31 18:31 WBC 8.1 (5.0-10.0) 10^3/uL RBC 5.25 (4.6-6.2) 10^6/uL Hgb 15.1 D (14.0-18.0) g/dL Hct 47.5 (40.0-54.0) % MCV 90.5 (80-100) fL MCH 28.8 (27.0-34.0) pg MCHC 31.8 L (33.0-35.0) g/dL Plt Count 173 (150-450) 10^3/uL Neut % (Auto) 76.1 H (42.2-75.2) % Lymph % (Auto) 16.1 L (20.5-50.1) % [place] % (Auto) 6.6 (2-8) % Eos % (Auto) 1.1 (1.0-3.0) % Baso % (Auto) 0.1 (0.0-1.0) % D-Dimer, Quantitative 780 H (0-400) ng/mL Sodium 137 (136-145) mmol/L Potassium 5.0 (3.5-5.1) mmol/L Chloride 102 (98-107) mmol/L Carbon Dioxide 27 (21-32) mmol/L Anion Gap 13.0 (7-13) mEq/L BUN 30 H (7-18) mg/dL Creatinine 1.64 H (0.70-1.30) mg/dL Est Cr Clr Drug Dosing 38.33 mL/min Estimated GFR (MDRD) 41 BUN/Creatinine Ratio 18.3 (No establ ref range) Glucose 220 H (74-99) mg/dL Calcium 8.6 (8.5-10.1) mg/dL Total Bilirubin 0.9 (0.2-1.0) mg/dL AST 28 (15-37) U/L ALT 31 (16-63) U/L Alkaline Phosphatase 111 (46-116) U/L Troponin I < 0.017 (0.000-0.056) ng/mL C-Reactive Protein 3.0 H (0.0-0.9) mg/dL B-Natriuretic Peptide 3430 H (0-100) pg/ml Total Protein 7.6 (6.4-8.2) g/dL Albumin 3.4 (3.4-5.0) g/dL Globulin 4.2 Albumin/Globulin Ratio 0.8 Meds: Medications Discontinued Medications Generic Name Dose Route Start Last Admin Trade Name Freq PRN Reason Stop Dose Admin Albuterol/Ipratropium 3 ml 08/10/19 18:24 08/10/19 18:36 Duoneb 3.0-0.5 Mg/3 Ml NEB 08/10/19 18:25 3 ml ONETIME ONE Administration Furosemide 40 mg 08/10/19 19:51 08/10/19 20:04 Lasix IVPUSH 08/10/19 19:52 40 mg NOW ONE Administration Ceftriaxone Sodium 1 gm/ 50 mls @ 100 mls/hr 08/10/19 19:52 06/24/20 20:12 Sodium Chloride IV 08/10/19 20:21 100 mls/hr ONETIME ONE Administration - Radiology Interpretation Free Text/Narrative:: Chest x-ray per radiology shows right lower lobe airspace opacity. Small Right pleural effusion Sepsis Event Note (ED) - Evaluation Sepsis Screening Result: No Definite Risk - Focused Exam Vital Signs: Vital Signs Temp Pulse Resp BP Pulse Ox 08/10/19 20:55 97.5 F 70 18 130/80 89 L - My Orders Last 24 Hours: My Active Orders 08/10/19 18:14 EKG Documentation Completion [RC] STAT 08/10/19 18:24 RT Aerosol Therapy [RC] ASDIRECTED - Assessment/Plan Last 24 Hours: My Active Orders 08/10/19 18:14 EKG Documentation Completion [RC] STAT 08/10/19 18:24 RT Aerosol Therapy [RC] ASDIRECTED
[2019-08-10] MEDS ORDERED: Albuterol/Ipratropium 3.0-0.5 MG/3 ML Neb Soln NEB ONE (18:24)
--- NOTE | 2019-08-10 18:33 | CR ---
PROCEDURE INFORMATION: Exam: XR Chest, 2 Views Exam date and time: 08/10/2019 6:15 PM Age: 78 years old Clinical indication: Other: Cp SOB TECHNIQUE: Imaging protocol: XR of the chest Views: 2 views. COMPARISON: CR Chest 2V 02/09/2019 4:39 AM FINDINGS: Tubes, catheters and devices: Left chest wall pacemaker with leads in the right atrium, coronary sinus, and right ventricle. Lungs: Right lower lobe airspace opacity. Pleural space: Small right pleural effusion. No pneumothorax. Heart/Mediastinum: Cardiomegaly. Bones/joints: Unremarkable. IMPRESSION: 1. Right lower lobe airspace opacity. 2. Small right pleural effusion.
[2019-08-10 18:58] LABS: CHLORIDE,CL 102 mmol/L (98-107); SODIUM,NA 137 mmol/L (136-145)
[2019-08-10] MEDS ORDERED: Furosemide 40 MG/4 ML VIAL IVPUSH ONE (19:51)
[2019-08-10] MEDS ORDERED: cefTRIAXone 1 GM in Sodium Chloride 0.9% 50 ML IV ONE (19:52)
[2019-08-10 21:38] VITALS: BP 130/80; PULSE 70
== END 2019-08-10 20:55 | disposition home or self-care (01) ==
LOC: DL.ED 16:35
DX: J40 Bronchitis, not specified as acute or chronic (principal); R79.1 Abnormal coagulation profile; I11.0 Hypertensive heart disease with heart failure; I50.9 Heart failure, unspecified; E78.00 Pure hypercholesterolemia, unspecified; I25.2 Old myocardial infarction; E11.9 Type 2 diabetes mellitus without complications; E03.9 Hypothyroidism, unspecified; Z88.8 Allergy status to other drugs, medicaments and biological substances; Z88.7 Allergy status to serum and vaccine; Z79.899 Other long term (current) drug therapy
CPT/HCPCS: 36415; 71046; 80053; 83880; 84484; 85025; 85379; 86140; 93005; 94640; 96365; 96375; 99285; J0696; J1940; J7050; J7620-GY

== ENCOUNTER 2019-09-07 09:19 | Emergency (ER) | payer MEDICARE, BC ==
[2019-09-07 09:33] VITALS: BP 108/94; PULSE 70
--- NOTE | 2019-09-07 09:53 | EDM.PDOC ---
ED HPI GENERAL MEDICAL PROBLEM - General Chief Complaint: General Stated Complaint: WEAKNESS Time Seen by Provider: 09/07/19 09:40 Source of Information: Reports: Patient History Limitations: Reports: No Limitations - History of Present Illness INITIAL COMMENTS - FREE TEXT/NARRATIVE: This 78 yo male patient reports to the ED due to increased weakness, increased shortness of breath and feeling shaky. The patient reports he has a history of lung cancer, was supposed to see Cardiology and Pulmonology today in [place], but was feeling too weak to make it to his scheduled appointments. The patient reports he has noticed some increased swelling in his lower extremities since his Lasix was reduced from 80 mg to 40 mg. The patient reports he increased his Lasix on Thursday to 80 mg and has been taking that dose since that time. Onset: Gradual Duration: Day(s):, Constant, Getting Worse Location: Reports: Generalized Quality: Reports: Other Severity: Moderate Improves with: Reports: None Worsens with: Reports: None Context: Reports: Other Associated Symptoms: Reports: No Other Symptoms Right Flank Pain Score (Numeric/FACES): 3 - Related Data Allergies Allergy/AdvReac Type Severity Reaction Status Date / Time chlorhexidine Allergy Itching Verified 09/07/19 09:33 pneumococcal vaccine Allergy Cannot Verified 09/07/19 09:33 Remember Home Meds: Home Meds ClonazePAM [KlonoPIN] 0.25 mg PO BEDTIME 10/12/14 [History] Digoxin 125 mcg PO DAILY 10/12/14 [History] Furosemide 40 mg PO BID 10/12/14 [History] Levothyroxine 200 mcg PO ACBREAKFAST 10/12/14 [History] Ybqvy-0-Xiar Ethyl Esters [Lovaza] 2 gm PO BID 10/12/14 [History] atorvaSTATin [Lipitor] 10 mg PO BEDTIME 10/12/14 [History] carvediloL [Carvedilol] 12.5 mg PO BID 10/12/14 [History] rOPINIRole [Requip] 1 mg PO DAILY 10/12/14 [History] Acetaminophen [Tylenol Arthritis Pain] 650 mg PO BID 10/12/17 [History] Amiodarone [Cordarone] 200 mg PO DAILY 10/12/17 [History] Hydrocodone/Acetaminophen [Hydrocodon-Acetaminophn 10-325] 10 - 325 tab PO TID 10/12/17 [History] Nitroglycerin 0.4 mg SL ASDIRECTED 10/12/17 [History] Tamsulosin [Tamsulosin 24 Hr] 0.4 mg PO BEDTIME 10/12/17 [History] Aspirin [Adult Low Dose Aspirin EC] 81 mg PO DAILY 02/28/19 [History] Calcium Carbonate [Calcium] 600 mg PO BIDMEALS 02/28/19 [History] Potassium Chloride [Klor-Con 10] 20 meq PO DAILY 02/28/19 [History] Albuterol [Ventolin HFA] 2 puff IN Q6HR PRN 08/10/19 [History] Carboxymethylcellulose Sodium [Thera Tears] 1 drop EYEBOTH DAILY 08/10/19 [History] Docusate Sodium/Sennosides [Senokot-S] 2 tab PO BEDTIME 08/10/19 [History] Folic Acid 1 mg PO DAILY 08/10/19 [History] Hydrocortisone [Hydrocortisone 1% Crm] 2 applic TOP BID 08/10/19 [History] Mirtazapine 7.5 mg PO BEDTIME 08/10/19 [History] Ondansetron [Zofran Odt] 8 mg PO Q6H PRN 08/10/19 [History] Sacubitril/Valsartan [Entresto 49 mg-51 mg Tablet] 1 tab PO Q12HR 08/10/19 [History] dexAMETHasone [Dexamethasone] 4 mg PO BIDMEALS 08/10/19 [History] Past Medical History HEENT History: Reports: Impaired Vision Other HEENT History: wears glasses Cardiovascular History: Reports: Heart Failure, High Cholesterol, Hypertension, [place], Stents, Other (See Below) Other Cardiovascular History: chronic pedal edema Respiratory History: Reports: Other (See Below) Other Respiratory History: Lung Ca Gastrointestinal History: Reports: Chronic Constipation Genitourinary History: Reports: Renal Disease Musculoskeletal History: Reports: Arthritis Other Neuro History: restless leg syndrome Psychiatric History: Reports: None Endocrine/Metabolic History: Reports: Diabetes, Type II, Hypothyroidism Hematologic History: Reports: None Immunologic History: Reports: None Oncologic (Cancer) History: Reports: Lung Dermatologic History: Reports: None - Infectious Disease History Infectious Disease History: Reports: Chicken Pox, Measles, Mumps - Past Surgical History Head Surgeries/Procedures: Reports: None Cardiovascular Surgical History: Reports: AICD, Pacer Social & Family History - Family History Family Medical History: Noncontributory - Tobacco Use Smoking Status *Q: Former Smoker Years of Tobacco use: 33 Packs/Tins Daily: 1.5 Used Tobacco, but Quit: Yes Month/Year Tobacco Last Used: april Second Hand Smoke Exposure: No - Caffeine Use Caffeine Use: Reports: Soda - Recreational Drug Use Recreational Drug Use: No ED ROS GENERAL - Review of Systems Review Of Systems: Comprehensive ROS is negative, except as noted in HPI. ED EXAM, GENERAL - Physical Exam Exam: See Below Exam Limited By: No Limitations General Appearance: Alert, WD/WN, Moderate Distress Eye Exam: Bilateral Eye: EOMI, Normal Inspection, PERRL Ears: Normal External Exam, Normal Canal, Hearing Grossly Normal, Normal TMs Nose: Normal Inspection, Normal Mucosa, No Blood Throat/Mouth: Normal Inspection, Normal Lips, Normal Teeth, Normal Gums, Normal Oropharynx, Normal Voice, No Airway Compromise Head: Atraumatic, Normocephalic Neck: Normal Inspection, Supple, Non-Tender, Full Range of Motion Respiratory/Chest: No Respiratory Distress, No Accessory Muscle Use, Chest Non- Tender, Decreased Breath Sounds Cardiovascular: Normal Peripheral Pulses, Regular Rate, Rhythm, No Edema, No Gallop, No JVD, No Murmur, No Rub GI/Abdominal: Normal Bowel Sounds, Soft, Non-Tender, No Organomegaly, No Distention, No Abnormal Bruit, No Mass (Male) Exam: Deferred Rectal (Males) Exam: Deferred Back Exam: Normal Inspection, Full Range of Motion, NT Extremities: Normal Inspection Neurological: Alert, Oriented, CN II-XII Intact, Normal Cognition, Normal Gait, Normal Reflexes, No Motor/Sensory Deficits Psychiatric: Normal Affect, Normal Mood Skin Exam: Warm, Dry, Intact, Normal Color, No Rash Lymphatic: No Adenopathy Course - Vital Signs Last Recorded V/S: Last Vital Signs Temp 36.3 C 09/07/19 09:27 Pulse 70 09/07/19 09:27 Resp 16 09/07/19 09:27 BP 108/94 H 09/07/19 09:27 Pulse Ox 95 09/07/19 09:27 - Orders/Labs/Meds Orders: Active Orders 24 hr Category Date Time Status EKG Documentation Completion [RC] STAT Care 09/07/19 09:37 Active CULTURE BLOOD [BC] Stat Lab 09/07/19 09:47 Received Labs: Laboratory Tests 09/07/19 09/07/19 09/07/19 Range/Units 09:47 09:47 09:47 WBC 9.3 (5.0-10.0) 10^3/uL RBC 5.13 (4.6-6.2) 10^6/uL Hgb 14.2 (14.0-18.0) g/dL Hct 44.8 (40.0-54.0) % MCV 87.3 D (80-100) fL MCH 27.7 (27.0-34.0) pg MCHC 31.7 L (33.0-35.0) g/dL Plt Count 207 (150-450) 10^3/uL Neut % (Auto) 72.6 (42.2-75.2) % Lymph % (Auto) 17.8 L (20.5-50.1) % [place] % (Auto) 8.0 (2-8) % Eos % (Auto) 1.5 (1.0-3.0) % Baso % (Auto) 0.1 (0.0-1.0) % Sodium 137 (136-145) mmol/L Potassium 4.2 (3.5-5.1) mmol/L Chloride 101 (98-107) mmol/L Carbon Dioxide 26 (21-32) mmol/L Anion Gap 14.2 H (7-13) mEq/L BUN 30 H (7-18) mg/dL Creatinine 1.84 H (0.70-1.30) mg/dL Est Cr Clr Drug Dosing 33.09 mL/min Estimated GFR (MDRD) 36 BUN/Creatinine Ratio 16.3 (No establ ref range) Glucose 179 H (74-99) mg/dL Lactic Acid 1.6 (0.4-2.0) mmol/L Calcium 8.1 L (8.5-10.1) mg/dL Total Bilirubin 0.8 (0.2-1.0) mg/dL AST 33 (15-37) U/L ALT 29 (16-63) U/L Alkaline Phosphatase 108 (46-116) U/L Troponin I < 0.017 (0.000-0.056) ng/mL B-Natriuretic Peptide 2570 H (0-100) pg/ml Total Protein 7.4 (6.4-8.2) g/dL Albumin 2.9 L (3.4-5.0) g/dL Globulin 4.5 Albumin/Globulin Ratio 0.64 COVID-19 ([facility]) (NEGATIVE) 09/07/19 Range/Units 11:05 WBC (5.0-10.0) 10^3/uL RBC (4.6-6.2) 10^6/uL Hgb (14.0-18.0) g/dL Hct (40.0-54.0) % MCV (80-100) fL MCH (27.0-34.0) pg MCHC (33.0-35.0) g/dL Plt Count (150-450) 10^3/uL Neut % (Auto) (42.2-75.2) % Lymph % (Auto) (20.5-50.1) % [place] % (Auto) (2-8) % Eos % (Auto) (1.0-3.0) % Baso % (Auto) (0.0-1.0) % Sodium (136-145) mmol/L Potassium (3.5-5.1) mmol/L Chloride (98-107) mmol/L Carbon Dioxide (21-32) mmol/L Anion Gap (7-13) mEq/L BUN (7-18) mg/dL Creatinine (0.70-1.30) mg/dL Est Cr Clr Drug Dosing mL/min Estimated GFR (MDRD) BUN/Creatinine Ratio (No establ ref range) Glucose (74-99) mg/dL Lactic Acid (0.4-2.0) mmol/L Calcium (8.5-10.1) mg/dL Total Bilirubin (0.2-1.0) mg/dL AST (15-37) U/L ALT (16-63) U/L Alkaline Phosphatase (46-116) U/L Troponin I (0.000-0.056) ng/mL B-Natriuretic Peptide (0-100) pg/ml Total Protein (6.4-8.2) g/dL Albumin (3.4-5.0) g/dL Globulin Albumin/Globulin Ratio COVID-19 ([facility]) Negative (NEGATIVE) - Re-Assessments/Exams Free Text/Narrative Re-Assessment/Exam: 09/07/19 10:46 While waiting for lab results, the patient's oxygen level dropped to 84% with a good wave form. A nasal canula was placed on the patient @ 2 lpm resulting in an oxygen sat of 99%. The patient reports the oxygen has made him feel better. Departure - Departure Time of Disposition: 11:45 Disposition: Home, Self-Care 01 Condition: Fair Clinical Impression: Hypoxemia, Shortness of breath, Weakness - Discharge Information Forms: Interfacility Transfer EMTALA Care Plan Goals: Discussed the patient's history, examination, lab, x-ray and EKG results with Dr. Flores. Dr. Flores accepted the patient for continued evaluation and management as an inpatient at [facility] in [place]. The patient will be transported by [facility]. Sepsis Event Note (ED) - Evaluation Sepsis Screening Result: No Definite Risk - Focused Exam Vital Signs: Vital Signs Temp Pulse Resp BP Pulse Ox 09/07/19 09:27 36.3 C 70 16 108/94 H 95 - My Orders Last 24 Hours: My Active Orders 09/07/19 09:37 EKG Documentation Completion [RC] STAT 09/07/19 09:47 CULTURE BLOOD [BC] Stat - Assessment/Plan Last 24 Hours: My Active Orders 09/07/19 09:37 EKG Documentation Completion [RC] STAT 09/07/19 09:47 CULTURE BLOOD [BC] Stat
[2019-09-07 10:19] LABS: ANION GAP 14.2 mEq/L (7-13); CHLORIDE,CL 101 mmol/L (98-107); SODIUM,NA 137 mmol/L (136-145)
--- NOTE | 2019-09-07 10:36 | CR ---
PROCEDURE INFORMATION: Exam: XR Chest, 2 Views Exam date and time: 09/07/2019 10:10 AM Age: 78 years old Clinical indication: Other: Generalized weakness with shortness of breath TECHNIQUE: Imaging protocol: XR of the chest Views: 2 views. COMPARISON: CR Chest 2V 08/10/2019 6:15 PM FINDINGS: Tubes, catheters and devices: There is a pacemaker with leads intact. Lungs: Persistent infiltrate is seen in both bases. Pleural space: Persistent blunting of the costophrenic angles are noted. Heart/Mediastinum: There is cardiomegaly. Bones/joints: Unremarkable. IMPRESSION: No change.
== END 2019-09-07 12:04 | disposition home or self-care (01) ==
LOC: DL.ED 09:19
DX: R09.02 Hypoxemia (principal); R06.02 Shortness of breath; R53.1 Weakness; I11.0 Hypertensive heart disease with heart failure; I50.9 Heart failure, unspecified; E11.9 Type 2 diabetes mellitus without complications; E78.00 Pure hypercholesterolemia, unspecified; E03.9 Hypothyroidism, unspecified; I25.2 Old myocardial infarction; M19.90 Unspecified osteoarthritis, unspecified site; Z20.828 Contact with and (suspected) exposure to other viral communicable diseases; Z87.891 Personal history of nicotine dependence; Z88.8 Allergy status to other drugs, medicaments and biological substances; Z88.7 Allergy status to serum and vaccine; Z79.82 Long term (current) use of aspirin; Z79.899 Other long term (current) drug therapy
CPT/HCPCS: 36415; 71046; 80053; 83605; 83880; 84484; 85025; 87040; 93005; 99284; 99285; U0002

== ENCOUNTER 2022-10-15 14:50 | Emergency (ER) | payer MEDICARE, BC ==
[2022-10-15] MEDS ORDERED: Sodium Chloride 0.9% 10 ML Syringe FLUSH PRN (15:11)
[2022-10-15 15:18] LABS: BASOPHILS PERCENT AUTO 0.2 % (0.0-1.0); EOSINOPHILS PERCENT AUTO 1.3 % (1.0-3.0); HEMATOCRIT 48.3 % (40.0-54.0); HEMOGLOBIN 15.9 g/dL (14.0-18.0); LYMPHOCYTES PERCENT AUTO 17.6 % (20.5-50.1); MEAN CORPUSCULAR HEMOGLOBIN 30.8 pg (27.0-34.0); MEAN CORPUSCULAR HGB CONC 32.9 g/dL (33.0-35.0); MEAN CORPUSCULAR VOLUME 93.6 fL (80-100); MONOCYTES PERCENT AUTO 7.8 % (2-8); NEUTROPHILS PERCENT AUTO 73.1 % (42.2-75.2); PLATELET COUNT,PLT 159 10^3/uL (150-450); RED BLOOD CELL COUNT 5.16 10^6/uL (4.6-6.2); WHITE BLOOD CELL COUNT,WBC 9.4 10^3/uL (5.0-10.0)
[2022-10-15 15:24] VITALS: BP 136/100; PULSE 98
[2022-10-15 15:42] LABS: A/G RATIO 1.4; ANION GAP 14.8 mEq/L (7-13); BILIRUBIN TOTAL 0.9 mg/dL (0.2-1.0); BUN/CREATININE RATIO 14.4 (No establ ref range); CALCIUM 9.2 mg/dL (8.5-10.1); CREATININE 2.22 mg/dL (0.70-1.30); EST CRCL DRUG DOSING (CG) 26.1 mL/min; MAGNESIUM 2.1 mg/dL (1.8-2.4); POTASSIUM,K 4.8 mmol/L (3.5-5.1); PROTEIN TOTAL,TP 6.9 g/dL (6.4-8.2); TSH ULTRASENSITIVE 1.39 uIU/mL (0.36-3.74)
[2022-10-15 15:43] LABS: LACTIC ACID 2.2 mmol/L (0.4-2.0)
[2022-10-15 16:22] LABS: APPEARANCE,URINE CLEAR (CLEAR); BILIRUBIN,URINE NEGATIVE (NEGATIVE); COLOR,URINE YELLOW (YELLOW); GLUCOSE,URINE NEGATIVE (NEGATIVE); KETONES,URINE NEGATIVE (NEGATIVE); LEUKOCYTE ESTERASE,URINE NEGATIVE (NEGATIVE); NITRITE,URINE NEGATIVE (NEGATIVE); OCCULT BLOOD,URINE TRACE-INTACT (NEGATIVE); PROTEIN,URINE NEGATIVE (NEGATIVE); UROBILINOGEN,URINE 0.2 mg/dL (0.2-1.0)
[2022-10-15 16:52] LABS: BACTERIA,URINE RARE /HPF (0-FEW/HPF); EPITHELIAL CELLS,URINE RARE /HPF (NOT SEEN); RBC,URINE 0-5 /HPF (0-5); WBC,URINE 0-5 /HPF (0-5/HPF)
== END 2022-10-15 17:05 | disposition home or self-care (01) ==
LOC: DL.ED 14:50
DX: K59.03 Drug induced constipation (principal); T50.905A Adverse effect of unspecified drugs, medicaments and biological substances, initial encounter; E78.00 Pure hypercholesterolemia, unspecified; I13.0 Hypertensive heart and chronic kidney disease with heart failure and stage 1 through stage 4 chronic kidney disease, or unspecified chronic kidney disease; E11.22 Type 2 diabetes mellitus with diabetic chronic kidney disease; N18.9 Chronic kidney disease, unspecified; I50.9 Heart failure, unspecified; I25.2 Old myocardial infarction; E03.9 Hypothyroidism, unspecified; Z88.5 Allergy status to narcotic agent; Z88.7 Allergy status to serum and vaccine; Z79.82 Long term (current) use of aspirin; Z79.899 Other long term (current) drug therapy
CPT/HCPCS: 36415; 71045; 80053; 80162; 81001; 82150; 83605; 83690; 83735; 83880; 84443; 84484; 85025; 99284; J3490

== ENCOUNTER 2022-10-18 15:51 | Emergency (ER) | payer MEDICARE, BC ==
[2022-10-18 17:07] VITALS: BP 112/74; PULSE 88
[2022-10-18] MEDS ORDERED: Sodium Chloride 0.9% 10 ML Syringe FLUSH PRN (17:08)
[2022-10-18 17:27] LABS: BASOPHILS PERCENT AUTO 0.2 % (0.0-1.0); EOSINOPHILS PERCENT AUTO 1.4 % (1.0-3.0); HEMATOCRIT 49.7 % (40.0-54.0); HEMOGLOBIN 16.1 g/dL (14.0-18.0); LYMPHOCYTES PERCENT AUTO 15.5 % (20.5-50.1); MEAN CORPUSCULAR HEMOGLOBIN 30.3 pg (27.0-34.0); MEAN CORPUSCULAR HGB CONC 32.4 g/dL (33.0-35.0); MEAN CORPUSCULAR VOLUME 93.6 fL (80-100); MONOCYTES PERCENT AUTO 9.4 % (2-8); NEUTROPHILS PERCENT AUTO 73.5 % (42.2-75.2); PLATELET COUNT,PLT 169 10^3/uL (150-450); RED BLOOD CELL COUNT 5.31 10^6/uL (4.6-6.2); WHITE BLOOD CELL COUNT,WBC 10.1 10^3/uL (5.0-10.0)
[2022-10-18 17:46] LABS: A/G RATIO 1.3; ANION GAP 14.3 mEq/L (7-13); BILIRUBIN TOTAL 1.1 mg/dL (0.2-1.0); BUN/CREATININE RATIO 13.5 (No establ ref range); C-REACTIVE PROTEIN 2.5 mg/dL (0.0-0.9); CALCIUM 9.6 mg/dL (8.5-10.1); CREATININE 1.92 mg/dL (0.70-1.30); EST CRCL DRUG DOSING (CG) 27.88 mL/min; POTASSIUM,K 5.3 mmol/L (3.5-5.1); PROTEIN TOTAL,TP 7.2 g/dL (6.4-8.2)
[2022-10-18 17:50] LABS: LACTIC ACID 2.5 mmol/L (0.4-2.0)
[2022-10-18] MEDS ORDERED: Sodium Polystyrene Sulfonate 15 GM/60 ML Susp 60 ML Bot PO ONE (18:07)
[2022-10-18] MEDS ORDERED: Methylnaltrexone 12 MG/0.6 ML SDV SUBCUT ONE (18:08)
== END 2022-10-18 18:23 | disposition home or self-care (01) ==
LOC: DL.ED 15:51
DX: K59.03 Drug induced constipation (principal); I10 Essential (primary) hypertension; E78.00 Pure hypercholesterolemia, unspecified; I25.2 Old myocardial infarction; E11.9 Type 2 diabetes mellitus without complications; E03.9 Hypothyroidism, unspecified; Z79.899 Other long term (current) drug therapy; Z88.7 Allergy status to serum and vaccine; Z88.8 Allergy status to other drugs, medicaments and biological substances
CPT/HCPCS: 36415; 74019; 74176; 80053; 83605; 85025; 86140; 96372; 99284; A9270; J2212; J3490

== ENCOUNTER 2022-10-19 13:54 | Emergency (ER) | payer MEDICARE, BC ==
[2022-10-19] MEDS ORDERED: Sodium Chloride 0.9% 10 ML Syringe FLUSH PRN (14:13)
[2022-10-19 14:29] LABS: BASOPHILS PERCENT AUTO 0.1 % (0.0-1.0); EOSINOPHILS PERCENT AUTO 0.5 % (1.0-3.0); HEMATOCRIT 46.1 % (40.0-54.0); HEMOGLOBIN 14.7 g/dL (14.0-18.0); LYMPHOCYTES PERCENT AUTO 11.8 % (20.5-50.1); MEAN CORPUSCULAR HEMOGLOBIN 30.1 pg (27.0-34.0); MEAN CORPUSCULAR HGB CONC 31.9 g/dL (33.0-35.0); MEAN CORPUSCULAR VOLUME 94.3 fL (80-100); NEUTROPHILS PERCENT AUTO 79.6 % (42.2-75.2); PLATELET COUNT,PLT 161 10^3/uL (150-450); RED BLOOD CELL COUNT 4.89 10^6/uL (4.6-6.2); WHITE BLOOD CELL COUNT,WBC 10.4 10^3/uL (5.0-10.0)
[2022-10-19 14:48] LABS: INR 1.2 (0.9-1.2); PROTHROMBIN TIME 12.3 SEC (9.0-12.0)
[2022-10-19 14:50] LABS: A/G RATIO 1.1; ALBUMIN 3.4 g/dL (3.4-5.0); ANION GAP 14.6 mEq/L (7-13); BILIRUBIN TOTAL 1.4 mg/dL (0.2-1.0); BUN/CREATININE RATIO 15.2 (No establ ref range); C-REACTIVE PROTEIN 2.3 mg/dL (0.0-0.9); CALCIUM 8.7 mg/dL (8.5-10.1); CREATININE 2.1 mg/dL (0.70-1.30); EST CRCL DRUG DOSING (CG) 27.59 mL/min; MAGNESIUM 1.9 mg/dL (1.8-2.4); POTASSIUM,K 4.6 mmol/L (3.5-5.1); PROTEIN TOTAL,TP 6.4 g/dL (6.4-8.2)
[2022-10-19 14:51] LABS: APPEARANCE,URINE CLEAR (CLEAR); BILIRUBIN,URINE NEGATIVE (NEGATIVE); COLOR,URINE DARK YELLOW (YELLOW); GLUCOSE,URINE NEGATIVE (NEGATIVE); KETONES,URINE NEGATIVE (NEGATIVE); LEUKOCYTE ESTERASE,URINE NEGATIVE (NEGATIVE); NITRITE,URINE NEGATIVE (NEGATIVE); OCCULT BLOOD,URINE TRACE-INTACT (NEGATIVE); PH,URINE 5.5 (5.0-9.0); PROTEIN,URINE 30 (NEGATIVE); UROBILINOGEN,URINE 0.2 mg/dL (0.2-1.0)
[2022-10-19 14:58] LABS: LACTIC ACID 2.8 mmol/L (0.4-2.0)
[2022-10-19 15:02] LABS: BACTERIA,URINE RARE /HPF (0-FEW/HPF); EPITHELIAL CELLS,URINE RARE /HPF (NOT SEEN); RBC,URINE 0-5 /HPF (0-5); WBC,URINE 0-5 /HPF (0-5/HPF)
[2022-10-19 15:19] VITALS: BP 120/52; PULSE 72
[2022-10-19] MEDS ORDERED: Furosemide 40 MG/4 ML VIAL IVPUSH ONE (15:19)
== END 2022-10-19 15:54 | disposition home or self-care (01) ==
LOC: DL.ED 13:54
DX: I11.0 Hypertensive heart disease with heart failure (principal); I50.9 Heart failure, unspecified; I25.2 Old myocardial infarction; E78.00 Pure hypercholesterolemia, unspecified; E11.9 Type 2 diabetes mellitus without complications; E03.9 Hypothyroidism, unspecified; Z88.5 Allergy status to narcotic agent; Z88.7 Allergy status to serum and vaccine; Z79.899 Other long term (current) drug therapy; Z79.82 Long term (current) use of aspirin; Z91.148 Patient's other noncompliance with medication regimen for other reason
CPT/HCPCS: 36415; 71046; 80053; 80162; 81001; 82150; 83605; 83690; 83735; 83880; 84100; 85025; 85610; 86140; 93005; 96374; 99285; J1940; 93010; 99284; J3490

== ENCOUNTER 2022-10-20 11:14 | Observation (INO) | payer MEDICARE, BC ==
[2022-10-20] MEDS ORDERED: Ondansetron 4 MG/2 ML SDV IV ONE (11:42)
[2022-10-20] MEDS: Sodium Chloride 0.9% 10 ML Syringe FLUSH PRN (11:49)
[2022-10-20 11:57] LABS: BASOPHILS PERCENT AUTO 0.2 % (0.0-1.0); HEMATOCRIT 44.1 % (40.0-54.0); HEMOGLOBIN 14.3 g/dL (14.0-18.0); LYMPHOCYTES PERCENT AUTO 8.7 % (20.5-50.1); MEAN CORPUSCULAR HEMOGLOBIN 30.5 pg (27.0-34.0); MEAN CORPUSCULAR HGB CONC 32.4 g/dL (33.0-35.0); MONOCYTES PERCENT AUTO 7.9 % (2-8); NEUTROPHILS PERCENT AUTO 82.2 % (42.2-75.2); PLATELET COUNT,PLT 155 10^3/uL (150-450); RED BLOOD CELL COUNT 4.69 10^6/uL (4.6-6.2); WHITE BLOOD CELL COUNT,WBC 11.2 10^3/uL (5.0-10.0)
[2022-10-20 12:09] LABS: APPEARANCE,URINE CLEAR (CLEAR); BILIRUBIN,URINE NEGATIVE (NEGATIVE); COLOR,URINE YELLOW (YELLOW); GLUCOSE,URINE NEGATIVE (NEGATIVE); KETONES,URINE NEGATIVE (NEGATIVE); LEUKOCYTE ESTERASE,URINE NEGATIVE (NEGATIVE); NITRITE,URINE NEGATIVE (NEGATIVE); OCCULT BLOOD,URINE TRACE-INTACT (NEGATIVE); PROTEIN,URINE NEGATIVE (NEGATIVE); UROBILINOGEN,URINE 0.2 mg/dL (0.2-1.0)
[2022-10-20 12:12] LABS: A/G RATIO 1.3; ALBUMIN 3.6 g/dL (3.4-5.0); ANION GAP 16.7 mEq/L (7-13); BILIRUBIN TOTAL 1.5 mg/dL (0.2-1.0); BUN/CREATININE RATIO 17.3 (No establ ref range); CALCIUM 8.7 mg/dL (8.5-10.1); CREATININE 2.02 mg/dL (0.70-1.30); EST CRCL DRUG DOSING (CG) 28.68 mL/min; POTASSIUM,K 3.7 mmol/L (3.5-5.1); PROTEIN TOTAL,TP 6.3 g/dL (6.4-8.2)
[2022-10-20 12:16] LABS: LACTIC ACID 2.3 mmol/L (0.4-2.0)
[2022-10-20 12:18] LABS: AMORPHOUS SEDIMENT,URINE RARE /HPF (NOT SEEN); BACTERIA,URINE RARE /HPF (0-FEW/HPF); EPITHELIAL CELLS,URINE RARE /HPF (NOT SEEN); MUCUS,URINE RARE /LPF (NOT SEEN); RBC,URINE 0-5 /HPF (0-5); WBC,URINE 0-5 /HPF (0-5/HPF)
[2022-10-20] MEDS ORDERED: Bisacodyl 10 MG Supp RECTAL ONE ×2 (12:31→15:46)
[2022-10-20] MEDS: Sodium Chloride 0.9% 1,000 ML IV SCH ×2 (15:24→20:59)
[2022-10-20] MEDS ORDERED: Acetaminophen/HYDROcodone 325-10 MG Tab PO ONE (19:39)
[2022-10-20] MEDS ORDERED: Albuterol 6.7 GM Inhaler INH PRN (22:26)
[2022-10-20] MEDS ORDERED: Diclofenac Sodium 1% Gel 100 GM Tube TOP PRN (22:26)
[2022-10-20] MEDS ORDERED: ClonazePAM 0.5 MG Tab PO PRN (22:26)
[2022-10-20] MEDS ORDERED: Ondansetron 4 MG Tab.DIS PO PRN (22:26)
[2022-10-21] MEDS: LEVOTHYROXINE 88 MCG PO SCH ×2 (04:11→05:51)
[2022-10-21 06:45] LABS: ANION GAP 12.8 mEq/L (7-13); CALCIUM 8.2 mg/dL (8.5-10.1); CREATININE 1.78 mg/dL (0.70-1.30); EST CRCL DRUG DOSING (CG) 32.55 mL/min; POTASSIUM,K 3.8 mmol/L (3.5-5.1)
[2022-10-21] MEDS ORDERED: Carvedilol 6.25 MG Tab ONE (08:27)
[2022-10-21] MEDS ORDERED: rOPINIRole 0.25 MG Tab ONE (08:27)
[2022-10-21] MEDS: CARVEDILOL 12.5 MG PO SCH ×2 (08:43→20:35)
[2022-10-21] MEDS: Losartan 50 MG Tab PO SCH (08:46)
[2022-10-21] MEDS: Bumetanide 1 MG Tab PO SCH ×2 (08:46→14:02)
[2022-10-21] MEDS: DOCUSATE SODIUM 100 MG PO SCH (08:47)
[2022-10-21] MEDS: ACETAMINOPHEN PO SCH ×3 (08:48→16:22)
[2022-10-21] MEDS: HYDROCODONE PO SCH ×3 (08:48→16:22)
[2022-10-21] MEDS: Polyvinyl Alcohol 1.4% Ophth Soln 15 ML Bottle EYEBOTH SCH (08:58)
[2022-10-21] MEDS: ROPINIROLE 1 MG PO SCH (09:01)
[2022-10-21] MEDS ORDERED: Magnesium Hydroxide 400 MG/5 ML Susp 30 ML Cup PO ONE (11:09)
[2022-10-21] MEDS ORDERED: Bisacodyl 10 MG Supp RECTAL ONE (11:09)
[2022-10-21] MEDS: CLONAZEPAM 1 MG PO PRN (20:33)
[2022-10-21] MEDS: Tamsulosin 0.4 MG Cap.ER**OWN MED PO SCH (20:33)
[2022-10-21] MEDS: MIRTAZAPINE 15 MG PO SCH (20:35)
[2022-10-21] MEDS ORDERED: Patient's Own Medication 1 Each EYERT SCH (21:00)
[2022-10-21] MEDS ORDERED: Latanoprost 0.005% Ophth Soln 2.5 ML Bottle EYERT SCH (21:00)
[2022-10-21] MEDS: Latanoprost 0.005% Ophth Soln 2.5 ML Bottle**OWN MED EYERT SCH (21:02)
[2022-10-22] MEDS: HYDROCODONE PO SCH ×3 (00:29→15:43)
[2022-10-22] MEDS: ACETAMINOPHEN PO SCH ×3 (00:29→15:43)
[2022-10-22] MEDS: Levothyroxine 88 MCG Tab**OWN MED PO SCH (06:19)
[2022-10-22] MEDS: Bumetanide 1 MG Tab PO SCH ×2 (08:21→13:54)
[2022-10-22] MEDS: Losartan 50 MG Tab PO SCH (08:21)
[2022-10-22] MEDS: CARVEDILOL 12.5 MG PO SCH ×2 (08:27→20:38)
[2022-10-22] MEDS: ROPINIROLE 1 MG PO SCH (08:28)
[2022-10-22] MEDS: DOCUSATE SODIUM 100 MG PO SCH (08:28)
[2022-10-22] MEDS: Polyvinyl Alcohol 1.4% Ophth Soln 15 ML Bottle EYEBOTH SCH (08:29)
[2022-10-22] MEDS ORDERED: Polyethylene Glycol/Electrolytes 4,000 ML Bottle PO ONE (09:36)
[2022-10-22] MEDS: GLIPIZIDE 5 MG PO SCH (12:37)
[2022-10-22] MEDS: Sodium Chloride 0.9% 10 ML Syringe FLUSH PRN (20:36)
[2022-10-22] MEDS: MIRTAZAPINE 15 MG PO SCH (20:37)
[2022-10-22] MEDS: Latanoprost 0.005% Ophth Soln 2.5 ML Bottle**OWN MED EYERT SCH (20:37)
[2022-10-22] MEDS: Tamsulosin 0.4 MG Cap.ER**OWN MED PO SCH (20:38)
[2022-10-22] MEDS: CLONAZEPAM 1 MG PO PRN (20:39)
[2022-10-23] MEDS: ACETAMINOPHEN PO SCH ×3 (00:25→08:51)
[2022-10-23] MEDS: HYDROCODONE PO SCH ×3 (00:25→08:51)
[2022-10-23] MEDS: Levothyroxine 88 MCG Tab**OWN MED PO SCH (06:09)
[2022-10-23] MEDS ORDERED: Carvedilol 6.25 MG Tab ONE (08:20)
[2022-10-23] MEDS ORDERED: rOPINIRole 0.25 MG Tab ONE (08:20)
[2022-10-23] MEDS: Losartan 50 MG Tab PO SCH (08:34)
[2022-10-23] MEDS: Bumetanide 1 MG Tab PO SCH (08:37)
[2022-10-23] MEDS: GLIPIZIDE 5 MG PO SCH (08:37)
[2022-10-23] MEDS: DOCUSATE SODIUM 100 MG PO SCH (08:38)
[2022-10-23] MEDS: Polyvinyl Alcohol 1.4% Ophth Soln 15 ML Bottle EYEBOTH SCH ×2 (08:39→09:20)
[2022-10-23] MEDS: ROPINIROLE 1 MG PO SCH (08:41)
[2022-10-23] MEDS: CARVEDILOL 12.5 MG PO SCH (09:20)
[2022-10-23 12:48] VITALS: BP 129/98; PULSE 57
== END 2022-10-23 15:20 | disposition home or self-care (01) ==
LOC: DL.ED 11:14 → UNDOADMOB 12:25 → DL.MS 12:25 → UNDOADMOB 12:50
PROVIDERS: ADMIT Family Medicine; ATTEND Hospitalist
DX: K56.7 Ileus, unspecified (principal); K59.03 Drug induced constipation; T40.2X5A Adverse effect of other opioids, initial encounter; J96.11 Chronic respiratory failure with hypoxia; R53.1 Weakness; R11.0 Nausea; R13.10 Dysphagia, unspecified; G89.29 Other chronic pain; I49.9 Cardiac arrhythmia, unspecified; N40.0 Benign prostatic hyperplasia without lower urinary tract symptoms; G25.81 Restless legs syndrome; C34.91 Malignant neoplasm of unspecified part of right bronchus or lung; I13.0 Hypertensive heart and chronic kidney disease with heart failure and stage 1 through stage 4 chronic kidney disease, or unspecified chronic kidney disease; E11.22 Type 2 diabetes mellitus with diabetic chronic kidney disease; N18.4 Chronic kidney disease, stage 4 (severe); I50.9 Heart failure, unspecified; E78.5 Hyperlipidemia, unspecified; I25.10 Atherosclerotic heart disease of native coronary artery without angina pectoris; M19.90 Unspecified osteoarthritis, unspecified site; Z87.891 Personal history of nicotine dependence; Z88.8 Allergy status to other drugs, medicaments and biological substances; Z88.7 Allergy status to serum and vaccine; Z79.82 Long term (current) use of aspirin; Z79.899 Other long term (current) drug therapy; Z79.890 Hormone replacement therapy; Z79.84 Long term (current) use of oral hypoglycemic drugs
CPT/HCPCS: 36415; 74019; 80048; 80053; 81001; 83605; 83690; 83880; 85025; 85730; 96374; 99285; A9270; G0378; J2405; J7030; J3490

== ENCOUNTER 2022-10-25 08:40 | Emergency (ER) | payer MEDICARE, BC ==
[2022-10-25] MEDS ORDERED: Sodium Chloride 0.9% 10 ML Syringe FLUSH PRN (09:32)
[2022-10-25 09:52] VITALS: BP 133/59; PULSE 71
[2022-10-25 10:23] LABS: BASOPHILS PERCENT AUTO 0.2 % (0.0-1.0); EOSINOPHILS PERCENT AUTO 1.2 % (1.0-3.0); HEMATOCRIT 44.6 % (40.0-54.0); HEMOGLOBIN 14.7 g/dL (14.0-18.0); LYMPHOCYTES PERCENT AUTO 10.3 % (20.5-50.1); MEAN CORPUSCULAR HEMOGLOBIN 30.6 pg (27.0-34.0); MEAN CORPUSCULAR VOLUME 92.7 fL (80-100); NEUTROPHILS PERCENT AUTO 81.3 % (42.2-75.2); PLATELET COUNT,PLT 171 10^3/uL (150-450); RED BLOOD CELL COUNT 4.81 10^6/uL (4.6-6.2); WHITE BLOOD CELL COUNT,WBC 10.4 10^3/uL (5.0-10.0)
[2022-10-25 10:40] LABS: B-TYPE NATRIURETIC PEPTIDE,BNP 3680 pg/ml (0-100)
[2022-10-25 10:46] LABS: A/G RATIO 1.2; ALANINE AMINOTRANSFERASE,ALT 35 U/L (16-63); ALBUMIN 3.4 g/dL (3.4-5.0); ALKALINE PHOSPHATASE 69 U/L (46-116); ANION GAP 15.5 mEq/L (7-13); ASPARTATE AMNIOTRANSFERASE,AST 43 U/L (15-37); BILIRUBIN TOTAL 1.3 mg/dL (0.2-1.0); BLOOD UREA NITROGEN,BUN 25 mg/dL (7-18); BUN/CREATININE RATIO 16.1 (No establ ref range); CALCIUM 8.1 mg/dL (8.5-10.1); CARBON DIOXIDE,CO2 27 mmol/L (21-32); CHLORIDE,CL 105 mmol/L (98-107); CREATININE 1.55 mg/dL (0.70-1.30); EST CRCL DRUG DOSING (CG) 41.03 mL/min; GLUCOSE RANDOM 166 mg/dL (70-99); LIPASE 30 U/L (16-77); MAGNESIUM 2.1 mg/dL (1.8-2.4); POTASSIUM,K 3.5 mmol/L (3.5-5.1); PROTEIN TOTAL,TP 6.2 g/dL (6.4-8.2); SODIUM,NA 144 mmol/L (136-145)
[2022-10-25 10:50] LABS: LACTIC ACID 1.9 mmol/L (0.4-2.0)
[2022-10-25] MEDS ORDERED: Furosemide 40 MG/4 ML VIAL IVPUSH ONE (10:50)
[2022-10-25 10:56] LABS: ESTIMATED GFR 45 mL/min (>=60)
[2022-10-25 11:45] LABS: APPEARANCE,URINE CLEAR (CLEAR); BILIRUBIN,URINE NEGATIVE (NEGATIVE); COLOR,URINE YELLOW (YELLOW); GLUCOSE,URINE NEGATIVE (NEGATIVE); KETONES,URINE NEGATIVE (NEGATIVE); LEUKOCYTE ESTERASE,URINE NEGATIVE (NEGATIVE); NITRITE,URINE NEGATIVE (NEGATIVE); OCCULT BLOOD,URINE TRACE-INTACT (NEGATIVE); PROTEIN,URINE TRACE (NEGATIVE); UROBILINOGEN,URINE 0.2 mg/dL (0.2-1.0)
[2022-10-25 11:54] LABS: BACTERIA,URINE FEW /HPF (0-FEW/HPF); EPITHELIAL CELLS,URINE RARE /HPF (NOT SEEN); HYALINE CASTS,URINE RARE; MUCUS,URINE FEW /LPF (NOT SEEN); WBC,URINE 0-5 /HPF (0-5/HPF)
== END 2022-10-25 13:40 | disposition home or self-care (01) ==
LOC: DL.ED 08:40
DX: I11.0 Hypertensive heart disease with heart failure (principal); I50.9 Heart failure, unspecified; E78.00 Pure hypercholesterolemia, unspecified; I25.2 Old myocardial infarction; E11.9 Type 2 diabetes mellitus without complications; E03.9 Hypothyroidism, unspecified; Z88.8 Allergy status to other drugs, medicaments and biological substances; Z88.7 Allergy status to serum and vaccine; Z79.899 Other long term (current) drug therapy; Z79.82 Long term (current) use of aspirin; Z79.84 Long term (current) use of oral hypoglycemic drugs
CPT/HCPCS: 36415; 71046; 74019; 80053; 81001; 83605; 83690; 83735; 83880; 84145; 84484; 85025; 93005; 93010; 94660; 96374; 99284; 99285-25; J1940; J3490

== ENCOUNTER 2022-12-01 05:49 | Day surgery (SDC) | payer MEDICARE, BC ==
[2022-12-01] MEDS: Dextrose 5%-0.45% NaCl 1,000 ML IV SCH (06:14)
[2022-12-01] MEDS ORDERED: fentaNYL 100 MCG/2 ML SDV ONE (06:15)
[2022-12-01] MEDS ORDERED: Midazolam 1 MG/ML 2 ML SDV ONE (06:15)
[2022-12-01] MEDS: fentaNYL 100 MCG/2 ML SDV IV ONE ×2 (06:38→06:39)
[2022-12-01] MEDS: Midazolam 1 MG/ML 2 ML SDV IV ONE (06:40)
[2022-12-01 07:32] VITALS: PULSE 61
[2022-12-01 08:10] VITALS: BP 105/57
== END 2022-12-01 08:50 | disposition home or self-care (01) ==
LOC: DL.ENDO 05:49
PROVIDERS: ATTEND Internal Medicine Gastroenterology
DX: K29.50 Unspecified chronic gastritis without bleeding (principal); K31.89 Other diseases of stomach and duodenum; K25.9 Gastric ulcer, unspecified as acute or chronic, without hemorrhage or perforation; R13.10 Dysphagia, unspecified; I25.10 Atherosclerotic heart disease of native coronary artery without angina pectoris; E11.22 Type 2 diabetes mellitus with diabetic chronic kidney disease; I13.0 Hypertensive heart and chronic kidney disease with heart failure and stage 1 through stage 4 chronic kidney disease, or unspecified chronic kidney disease; N18.4 Chronic kidney disease, stage 4 (severe); I50.9 Heart failure, unspecified; E78.5 Hyperlipidemia, unspecified; E89.0 Postprocedural hypothyroidism; M19.90 Unspecified osteoarthritis, unspecified site; M54.50 Low back pain, unspecified; Z95.810 Presence of automatic (implantable) cardiac defibrillator; Z88.8 Allergy status to other drugs, medicaments and biological substances; Z88.7 Allergy status to serum and vaccine; Z98.890 Other specified postprocedural states; Z85.118 Personal history of other malignant neoplasm of bronchus and lung
CPT/HCPCS: 43239; 87077; J2250; J3010; J7042; 88305; 88342

== ENCOUNTER 2023-03-16 11:07 | Inpatient (IN) | payer MEDICARE, BC ==
[2023-03-16] MEDS: Sodium Chloride 0.9% 10 ML Syringe FLUSH PRN ×2 (11:46→22:19)
[2023-03-16 11:52] LABS: BASOPHILS PERCENT AUTO 0.1 % (0.0-1.0); EOSINOPHILS PERCENT AUTO 1.3 % (1.0-3.0); HEMATOCRIT 42.8 % (40.0-54.0); HEMOGLOBIN 13.2 g/dL (14.0-18.0); LYMPHOCYTES PERCENT AUTO 18.6 % (20.5-50.1); MEAN CORPUSCULAR HEMOGLOBIN 28.3 pg (27.0-34.0); MEAN CORPUSCULAR HGB CONC 30.8 g/dL (33.0-35.0); MEAN CORPUSCULAR VOLUME 91.8 fL (80-100); MONOCYTES PERCENT AUTO 7.4 % (2-8); NEUTROPHILS PERCENT AUTO 72.6 % (42.2-75.2); PLATELET COUNT,PLT 155 10^3/uL (150-450); RED BLOOD CELL COUNT 4.66 10^6/uL (4.6-6.2); WHITE BLOOD CELL COUNT,WBC 7.9 10^3/uL (5.0-10.0)
[2023-03-16 12:10] LABS: ALBUMIN 3.2 g/dL (3.4-5.0); ANION GAP 15.3 mEq/L (7-13); BILIRUBIN TOTAL 1.3 mg/dL (0.2-1.0); BUN/CREATININE RATIO 21.7 (No establ ref range); CALCIUM 8.6 mg/dL (8.5-10.1); CREATININE 2.44 mg/dL (0.70-1.30); EST CRCL DRUG DOSING (CG) 24.1 mL/min; MAGNESIUM 2.4 mg/dL (1.8-2.4); POTASSIUM,K 4.3 mmol/L (3.5-5.1); PROTEIN TOTAL,TP 7.7 g/dL (6.4-8.2)
[2023-03-16 12:12] LABS: A/G RATIO 0.71
[2023-03-16] MEDS ORDERED: Sodium Chloride 0.9% 1,000 ML IV ONE (12:17)
[2023-03-16 13:09] LABS: CORONAVIRUS COVID-19 NAA NEGATIVE (NEGATIVE); INFLUENZA A NAA NEGATIVE (NEGATIVE); INFLUENZA B NAA NEGATIVE (NEGATIVE)
[2023-03-16 14:37] LABS: RESPIRATORY SYNCYTIAL VIR NAA NEGATIVE (NEGATIVE)
[2023-03-16] MEDS ORDERED: HYDROmorphone 0.5 MG/0.5 ML Syringe IVPUSH PRN (14:37)
[2023-03-16] MEDS ORDERED: Naloxone 2 MG/2 ML Syringe IVPUSH PRN (14:37)
[2023-03-16] MEDS ORDERED: Albuterol/Ipratropium 3.0-0.5 MG/3 ML Neb Soln NEB PRN (14:37)
[2023-03-16] MEDS ORDERED: Ondansetron 4 MG/2 ML SDV IVPUSH PRN (14:37)
[2023-03-16] MEDS ORDERED: Magnesium Hydroxide 400 MG/5 ML Susp 30 ML Cup PO PRN (14:37)
[2023-03-16] MEDS ORDERED: Acetaminophen 325 MG Tab PO PRN (14:37)
[2023-03-16] MEDS ORDERED: Sennosides/Docusate Sodium 50-8.6 MG Tab PO PRN (14:37)
[2023-03-16] MEDS ORDERED: traMADol 50 MG Tab PO PRN (14:41)
[2023-03-16] MEDS ORDERED: guaiFENesin/Dextromethorphan 100-10 MG/5 ML Soln 5 ML Cup PO PRN (14:41)
[2023-03-16] MEDS ORDERED: hydrALAZINE 20 MG/ML SDV IVPUSH PRN (14:42)
[2023-03-16] MEDS ORDERED: Metoprolol Tartrate 5 MG/5 ML SDV IVPUSH PRN (14:42)
[2023-03-16] MEDS ORDERED: guaiFENesin 600 MG Tab.ER PO ONE (14:44)
[2023-03-16] MEDS ORDERED: Dexamethasone 4 MG/ML SDV IVPUSH ONE (14:46)
[2023-03-16] MEDS ORDERED: Glucagon,Human Recombinant 1 MG Vial IM PRN (14:47)
[2023-03-16] MEDS ORDERED: 50% Dextrose in Water 50 ML Syringe IVPUSH PRN (14:47)
[2023-03-16] MEDS ORDERED: Bumetanide 1 MG/4 ML MDV IVPUSH ONE (14:50)
[2023-03-16] MEDS: Azithromycin 500 MG in Sodium Chloride 0.9% 250 ML IV SCH (17:16)
[2023-03-16] MEDS: Insulin Lispro 100 Units/ML 3 ML Vial SUBCUT SCH (17:25)
[2023-03-16] MEDS: Dexamethasone 4 MG/ML SDV IVPUSH SCH ×3 (17:32→22:20)
[2023-03-16] MEDS: ClonazePAM 0.5 MG Tab PO PRN (22:15)
[2023-03-16] MEDS: guaiFENesin 600 MG Tab.ER PO SCH (22:15)
[2023-03-16] MEDS: Apixaban 5 MG Tab PO SCH (22:16)
[2023-03-16] MEDS: Polyethylene Glycol 3350 Powder 17 GM Packet PO PRN (22:32)
[2023-03-16] MEDS: Latanoprost 0.005% Ophth Soln 2.5 ML Bottle EYERT SCH (22:39)
[2023-03-17 06:49] LABS: HEMATOCRIT 41.1 % (40.0-54.0); HEMOGLOBIN 12.8 g/dL (14.0-18.0); LYMPHOCYTES PERCENT AUTO 9.9 % (20.5-50.1); MEAN CORPUSCULAR HEMOGLOBIN 28.3 pg (27.0-34.0); MEAN CORPUSCULAR HGB CONC 31.1 g/dL (33.0-35.0); MEAN CORPUSCULAR VOLUME 90.7 fL (80-100); MONOCYTES PERCENT AUTO 2.8 % (2-8); NEUTROPHILS PERCENT AUTO 87.3 % (42.2-75.2); PLATELET COUNT,PLT 149 10^3/uL (150-450); RED BLOOD CELL COUNT 4.53 10^6/uL (4.6-6.2); WHITE BLOOD CELL COUNT,WBC 4.2 10^3/uL (5.0-10.0)
[2023-03-17 07:21] LABS: ANION GAP 17.3 mEq/L (7-13); BILIRUBIN TOTAL 1.3 mg/dL (0.2-1.0); BUN/CREATININE RATIO 22.9 (No establ ref range); CALCIUM 8.2 mg/dL (8.5-10.1); CREATININE 2.18 mg/dL (0.70-1.30); EST CRCL DRUG DOSING (CG) 26.13 mL/min; MAGNESIUM 2.3 mg/dL (1.8-2.4); POTASSIUM,K 4.3 mmol/L (3.5-5.1); PROTEIN TOTAL,TP 7.5 g/dL (6.4-8.2)
[2023-03-17 07:29] LABS: A/G RATIO 0.67
[2023-03-17] MEDS ORDERED: Sennosides/Docusate Sodium 50-8.6 MG Tab PO PRN (07:54)
[2023-03-17] MEDS ORDERED: Hydrocortisone 1% Crm 30 GM Tube TOP PRN (07:54)
[2023-03-17] MEDS ORDERED: Nitroglycerin 0.4 MG Tab.SL SL PRN (07:54)
[2023-03-17] MEDS ORDERED: Bumetanide 1 MG Tab PO SCH (08:00)
[2023-03-17] MEDS: Carvedilol 6.25 MG Tab PO SCH ×2 (08:27→21:28)
[2023-03-17] MEDS ORDERED: Carboxymethylcellulose Sodium 1% Ophth Gel 0.4 ML UD EYEBOTH PRN (08:27)
[2023-03-17] MEDS: atorvaSTATin 10 MG Tab PO SCH (08:28)
[2023-03-17] MEDS: Apixaban 5 MG Tab PO SCH ×2 (08:28→21:28)
[2023-03-17] MEDS: Folic Acid 1 MG Tab PO SCH (08:28)
[2023-03-17] MEDS: guaiFENesin 600 MG Tab.ER PO SCH ×2 (08:28→21:29)
[2023-03-17] MEDS: Potassium Chloride 10 MEQ Tab.ER PO SCH (08:29)
[2023-03-17] MEDS: Amiodarone 200 MG Tab PO SCH (08:29)
[2023-03-17] MEDS: Aspirin 81 MG Tab.EC PO SCH (08:29)
[2023-03-17] MEDS: Calcium Carbonate/Vitamin D3 1250 MG-5 MCG Tab PO SCH (08:29)
[2023-03-17] MEDS: rOPINIRole 0.25 MG Tab PO SCH (08:29)
[2023-03-17] MEDS: Insulin Lispro 100 Units/ML 3 ML Vial SUBCUT SCH ×3 (08:30→17:09)
[2023-03-17] MEDS: Levothyroxine 88 MCG Tab PO SCH (08:30)
[2023-03-17] MEDS: Dexamethasone 4 MG/ML SDV IVPUSH SCH (08:31)
[2023-03-17] MEDS ORDERED: OMEGA ACID ETHYL ESTERS PO SCH (09:00)
[2023-03-17] MEDS: Diclofenac Sodium 1% Gel 100 GM Tube TOP SCH ×2 (09:10→21:34)
[2023-03-17] MEDS: Omeprazole 20 MG Cap.CR PO SCH (09:10)
[2023-03-17] MEDS: Albuterol/Ipratropium 3.0-0.5 MG/3 ML Neb Soln NEB SCH ×4 (11:02→18:00)
[2023-03-17] MEDS: Azithromycin 500 MG in Sodium Chloride 0.9% 250 ML IV SCH (15:07)
[2023-03-17] MEDS: Bumetanide 1 MG Tab PO SCH (17:09)
[2023-03-17] MEDS: Acetaminophen/HYDROcodone 325-5 MG Tab PO PRN (19:18)
[2023-03-17] MEDS: Tamsulosin 0.4 MG Cap.ER PO SCH (21:28)
[2023-03-17] MEDS: Mirtazapine 15 MG Tab PO SCH (21:28)
[2023-03-17] MEDS: ClonazePAM 0.5 MG Tab PO PRN (21:28)
[2023-03-17] MEDS: Latanoprost 0.005% Ophth Soln 2.5 ML Bottle EYERT SCH (21:33)
[2023-03-17] MEDS: Polyethylene Glycol 3350 Powder 17 GM Packet PO PRN (21:37)
[2023-03-18] MEDS: Albuterol/Ipratropium 3.0-0.5 MG/3 ML Neb Soln NEB SCH ×4 (05:21→17:10)
[2023-03-18] MEDS: Omeprazole 20 MG Cap.CR PO SCH (06:17)
[2023-03-18] MEDS: Levothyroxine 88 MCG Tab PO SCH (06:17)
[2023-03-18] MEDS: Bumetanide 1 MG Tab PO SCH ×2 (06:17→15:59)
[2023-03-18 06:25] LABS: HEMATOCRIT 42.3 % (40.0-54.0); HEMOGLOBIN 12.9 g/dL (14.0-18.0); LYMPHOCYTES PERCENT AUTO 5.9 % (20.5-50.1); MEAN CORPUSCULAR HGB CONC 30.5 g/dL (33.0-35.0); MONOCYTES PERCENT AUTO 5.4 % (2-8); NEUTROPHILS PERCENT AUTO 88.7 % (42.2-75.2); PLATELET COUNT,PLT 128 10^3/uL (150-450); WHITE BLOOD CELL COUNT,WBC 12.7 10^3/uL (5.0-10.0)
[2023-03-18 07:01] LABS: ALBUMIN 3.2 g/dL (3.4-5.0); ANION GAP 14.9 mEq/L (7-13); CALCIUM 8.8 mg/dL (8.5-10.1); CREATININE 2.35 mg/dL (0.70-1.30); EST CRCL DRUG DOSING (CG) 24.24 mL/min; MAGNESIUM 2.6 mg/dL (1.8-2.4); POTASSIUM,K 4.9 mmol/L (3.5-5.1); PROTEIN TOTAL,TP 7.7 g/dL (6.4-8.2)
[2023-03-18 07:04] LABS: A/G RATIO 0.71
[2023-03-18] MEDS: rOPINIRole 0.25 MG Tab PO SCH (08:42)
[2023-03-18] MEDS: Aspirin 81 MG Tab.EC PO SCH (08:43)
[2023-03-18] MEDS: guaiFENesin 600 MG Tab.ER PO SCH ×2 (08:43→21:10)
[2023-03-18] MEDS: Apixaban 5 MG Tab PO SCH ×2 (08:44→21:10)
[2023-03-18] MEDS: Carvedilol 6.25 MG Tab PO SCH ×2 (08:45→21:10)
[2023-03-18] MEDS: Calcium Carbonate/Vitamin D3 1250 MG-5 MCG Tab PO SCH (08:46)
[2023-03-18] MEDS: Amiodarone 200 MG Tab PO SCH (08:47)
[2023-03-18] MEDS: Folic Acid 1 MG Tab PO SCH (08:47)
[2023-03-18] MEDS: Dexamethasone 4 MG Tab PO SCH (08:47)
[2023-03-18] MEDS: glipiZIDE 2.5 MG Tab.ER PO SCH (08:48)
[2023-03-18] MEDS: atorvaSTATin 10 MG Tab PO SCH (08:49)
[2023-03-18] MEDS: Potassium Chloride 10 MEQ Tab.ER PO SCH (08:50)
[2023-03-18] MEDS: Insulin Lispro 100 Units/ML 3 ML Vial SUBCUT SCH ×3 (08:51→17:08)
[2023-03-18] MEDS ORDERED: Dexamethasone 4 MG/ML SDV IVPUSH SCH (09:00)
[2023-03-18] MEDS: Diclofenac Sodium 1% Gel 100 GM Tube TOP SCH ×2 (09:04→21:16)
[2023-03-18] MEDS: Azithromycin 500 MG in Sodium Chloride 0.9% 250 ML IV SCH (14:50)
[2023-03-18] MEDS ORDERED: Midodrine 5 MG Tab PO ONE (15:43)
[2023-03-18] MEDS ORDERED: Sodium Chloride 0.9% 500 ML IV ONE (16:00)
[2023-03-18] MEDS: Acetaminophen/HYDROcodone 325-5 MG Tab PO PRN (21:10)
[2023-03-18] MEDS: Polyethylene Glycol 3350 Powder 17 GM Packet PO PRN (21:10)
[2023-03-18] MEDS: Tamsulosin 0.4 MG Cap.ER PO SCH (21:11)
[2023-03-18] MEDS: ClonazePAM 0.5 MG Tab PO PRN (21:11)
[2023-03-18] MEDS: Mirtazapine 15 MG Tab PO SCH (21:11)
[2023-03-18] MEDS: Latanoprost 0.005% Ophth Soln 2.5 ML Bottle EYERT SCH (21:16)
[2023-03-18] MEDS: SACUBITRIL PO SCH (21:16)
[2023-03-18] MEDS: VALSARTAN PO SCH (21:16)
[2023-03-19] MEDS: Albuterol/Ipratropium 3.0-0.5 MG/3 ML Neb Soln NEB SCH ×4 (05:10→17:44)
[2023-03-19] MEDS: Levothyroxine 88 MCG Tab PO SCH (06:29)
[2023-03-19] MEDS: Bumetanide 1 MG Tab PO SCH ×2 (06:29→16:04)
[2023-03-19] MEDS: Omeprazole 20 MG Cap.CR PO SCH (06:29)
[2023-03-19 06:35] LABS: HEMATOCRIT 43.9 % (40.0-54.0); HEMOGLOBIN 13.3 g/dL (14.0-18.0); LYMPHOCYTES PERCENT AUTO 5.7 % (20.5-50.1); MEAN CORPUSCULAR HEMOGLOBIN 27.6 pg (27.0-34.0); MEAN CORPUSCULAR HGB CONC 30.3 g/dL (33.0-35.0); MEAN CORPUSCULAR VOLUME 91.1 fL (80-100); MONOCYTES PERCENT AUTO 5.5 % (2-8); NEUTROPHILS PERCENT AUTO 88.8 % (42.2-75.2); PLATELET COUNT,PLT 156 10^3/uL (150-450); RED BLOOD CELL COUNT 4.82 10^6/uL (4.6-6.2); WHITE BLOOD CELL COUNT,WBC 11.8 10^3/uL (5.0-10.0)
[2023-03-19 06:56] LABS: ALBUMIN 3.1 g/dL (3.4-5.0); ANION GAP 18.8 mEq/L (7-13); BILIRUBIN TOTAL 1.1 mg/dL (0.2-1.0); BUN/CREATININE RATIO 28.9 (No establ ref range); CALCIUM 8.5 mg/dL (8.5-10.1); CREATININE 2.18 mg/dL (0.70-1.30); EST CRCL DRUG DOSING (CG) 26.13 mL/min; MAGNESIUM 2.5 mg/dL (1.8-2.4); POTASSIUM,K 4.8 mmol/L (3.5-5.1); PROTEIN TOTAL,TP 7.3 g/dL (6.4-8.2)
[2023-03-19 07:00] LABS: A/G RATIO 0.74
[2023-03-19] MEDS ORDERED: Midodrine 5 MG Tab PO SCH (08:00)
[2023-03-19] MEDS: Potassium Chloride 10 MEQ Tab.ER PO SCH (08:17)
[2023-03-19] MEDS: Calcium Carbonate/Vitamin D3 1250 MG-5 MCG Tab PO SCH (08:18)
[2023-03-19] MEDS: Amiodarone 200 MG Tab PO SCH (08:18)
[2023-03-19] MEDS: guaiFENesin 600 MG Tab.ER PO SCH ×2 (08:18→21:58)
[2023-03-19] MEDS: glipiZIDE 2.5 MG Tab.ER PO SCH (08:19)
[2023-03-19] MEDS: rOPINIRole 0.25 MG Tab PO SCH (08:19)
[2023-03-19] MEDS: Aspirin 81 MG Tab.EC PO SCH (08:20)
[2023-03-19] MEDS: Folic Acid 1 MG Tab PO SCH (08:21)
[2023-03-19] MEDS: Dexamethasone 4 MG Tab PO SCH (08:21)
[2023-03-19] MEDS: Apixaban 5 MG Tab PO SCH ×2 (08:21→21:57)
[2023-03-19] MEDS: atorvaSTATin 10 MG Tab PO SCH (08:22)
[2023-03-19] MEDS: Midodrine 5 MG Tab PO SCH ×2 (08:23→16:05)
[2023-03-19] MEDS: VALSARTAN PO SCH ×2 (08:24→22:09)
[2023-03-19] MEDS: SACUBITRIL PO SCH ×2 (08:24→22:09)
[2023-03-19] MEDS: Insulin Lispro 100 Units/ML 3 ML Vial SUBCUT SCH ×3 (08:29→17:19)
[2023-03-19] MEDS: Diclofenac Sodium 1% Gel 100 GM Tube TOP SCH ×2 (08:32→22:12)
[2023-03-19] MEDS: Carvedilol 6.25 MG Tab PO SCH ×2 (09:50→21:57)
[2023-03-19] MEDS: Azithromycin 500 MG in Sodium Chloride 0.9% 250 ML IV SCH (14:58)
[2023-03-19] MEDS: Tamsulosin 0.4 MG Cap.ER PO SCH (21:57)
[2023-03-19] MEDS: Mirtazapine 15 MG Tab PO SCH (21:57)
[2023-03-19] MEDS: Acetaminophen/HYDROcodone 325-5 MG Tab PO PRN (22:05)
[2023-03-19] MEDS: Latanoprost 0.005% Ophth Soln 2.5 ML Bottle EYERT SCH (22:10)
[2023-03-20] MEDS: ClonazePAM 0.5 MG Tab PO PRN (02:28)
[2023-03-20] MEDS: Omeprazole 20 MG Cap.CR PO SCH (05:15)
[2023-03-20] MEDS: Levothyroxine 88 MCG Tab PO SCH (05:16)
[2023-03-20] MEDS: Bumetanide 1 MG Tab PO SCH ×2 (06:33→15:57)
[2023-03-20] MEDS: Albuterol/Ipratropium 3.0-0.5 MG/3 ML Neb Soln NEB SCH ×2 (06:40→12:40)
[2023-03-20 06:55] LABS: BASOPHILS PERCENT AUTO 0.1 % (0.0-1.0); HEMATOCRIT 42.1 % (40.0-54.0); LYMPHOCYTES PERCENT AUTO 4.3 % (20.5-50.1); MEAN CORPUSCULAR HEMOGLOBIN 27.8 pg (27.0-34.0); MEAN CORPUSCULAR HGB CONC 30.9 g/dL (33.0-35.0); MEAN CORPUSCULAR VOLUME 90.1 fL (80-100); MONOCYTES PERCENT AUTO 5.8 % (2-8); NEUTROPHILS PERCENT AUTO 89.8 % (42.2-75.2); PLATELET COUNT,PLT 155 10^3/uL (150-450); RED BLOOD CELL COUNT 4.67 10^6/uL (4.6-6.2); WHITE BLOOD CELL COUNT,WBC 13.2 10^3/uL (5.0-10.0)
[2023-03-20 06:58] LABS: ALBUMIN 3.1 g/dL (3.4-5.0); ANION GAP 19.5 mEq/L (7-13); BUN/CREATININE RATIO 29.8 (No establ ref range); CALCIUM 8.5 mg/dL (8.5-10.1); CREATININE 2.08 mg/dL (0.70-1.30); EST CRCL DRUG DOSING (CG) 27.38 mL/min; MAGNESIUM 2.5 mg/dL (1.8-2.4); POTASSIUM,K 4.5 mmol/L (3.5-5.1); PROTEIN TOTAL,TP 7.2 g/dL (6.4-8.2)
[2023-03-20 07:01] LABS: A/G RATIO 0.76
[2023-03-20] MEDS: VALSARTAN PO SCH (08:16)
[2023-03-20] MEDS: SACUBITRIL PO SCH (08:16)
[2023-03-20] MEDS: atorvaSTATin 10 MG Tab PO SCH (08:17)
[2023-03-20] MEDS: Midodrine 5 MG Tab PO SCH (08:17)
[2023-03-20] MEDS: rOPINIRole 0.25 MG Tab PO SCH (08:18)
[2023-03-20] MEDS: Amiodarone 200 MG Tab PO SCH (08:18)
[2023-03-20] MEDS: glipiZIDE 2.5 MG Tab.ER PO SCH (08:18)
[2023-03-20] MEDS: Calcium Carbonate/Vitamin D3 1250 MG-5 MCG Tab PO SCH (08:18)
[2023-03-20] MEDS: Dexamethasone 4 MG Tab PO SCH (08:19)
[2023-03-20] MEDS: Apixaban 5 MG Tab PO SCH (08:20)
[2023-03-20] MEDS: Folic Acid 1 MG Tab PO SCH (08:20)
[2023-03-20] MEDS: Potassium Chloride 10 MEQ Tab.ER PO SCH (08:20)
[2023-03-20] MEDS: guaiFENesin 600 MG Tab.ER PO SCH (08:20)
[2023-03-20] MEDS: Aspirin 81 MG Tab.EC PO SCH (08:21)
[2023-03-20] MEDS: Carvedilol 6.25 MG Tab PO SCH (08:21)
[2023-03-20] MEDS: Insulin Lispro 100 Units/ML 3 ML Vial SUBCUT SCH ×2 (08:23→12:24)
[2023-03-20] MEDS: Diclofenac Sodium 1% Gel 100 GM Tube TOP SCH (08:25)
[2023-03-20 16:26] VITALS: BP 106/67; PULSE 61
[2023-03-23] MEDS ORDERED: Apixaban 5 MG Tab PO SCH (21:00)
== END 2023-03-20 16:08 | disposition home or self-care (01) | DRG 291 ==
LOC: DL.ED 11:07 → DL.MS 14:15
PROVIDERS: ADMIT Internal Medicine; ATTEND Internal Medicine
DX: R09.02 Hypoxemia (principal); I11.0 Hypertensive heart disease with heart failure; I50.9 Heart failure, unspecified; I13.0 Hypertensive heart and chronic kidney disease with heart failure and stage 1 through stage 4 chronic kidney disease, or unspecified chronic kidney disease; J45.909 Unspecified asthma, uncomplicated; E11.9 Type 2 diabetes mellitus without complications; E03.9 Hypothyroidism, unspecified; I26.99 Other pulmonary embolism without acute cor pulmonale; I50.23 Acute on chronic systolic (congestive) heart failure; J96.01 Acute respiratory failure with hypoxia; J44.1 Chronic obstructive pulmonary disease with (acute) exacerbation; N18.4 Chronic kidney disease, stage 4 (severe); J98.11 Atelectasis; I42.9 Cardiomyopathy, unspecified; Z66 Do not resuscitate; E78.00 Pure hypercholesterolemia, unspecified; K59.09 Other constipation; M19.90 Unspecified osteoarthritis, unspecified site; E89.0 Postprocedural hypothyroidism; E86.0 Dehydration; E11.22 Type 2 diabetes mellitus with diabetic chronic kidney disease; E11.65 Type 2 diabetes mellitus with hyperglycemia; R79.82 Elevated C-reactive protein (CRP); E88.09 Other disorders of plasma-protein metabolism, not elsewhere classified; Z99.81 Dependence on supplemental oxygen; Z88.7 Allergy status to serum and vaccine; Z88.8 Allergy status to other drugs, medicaments and biological substances; Z79.82 Long term (current) use of aspirin; Z79.51 Long term (current) use of inhaled steroids; Z79.84 Long term (current) use of oral hypoglycemic drugs; Z79.899 Other long term (current) drug therapy; Z79.2 Long term (current) use of antibiotics; Z95.5 Presence of coronary angioplasty implant and graft; Z85.118 Personal history of other malignant neoplasm of bronchus and lung; Z98.890 Other specified postprocedural states; Z90.49 Acquired absence of other specified parts of digestive tract; Z11.52 Encounter for screening for COVID-19
CPT/HCPCS: 0241U; 36415; 71045; 71250; 80053; 82947; 83605; 83735; 83880; 84484; 85025; 85379; 86140; 93005; 93010; 93306; 94010; 94060; 94640; 94667; 94668; 94760; 94762; 97110; 97116; 97161; 97165; 99285; 99223; 99233; 99238; 99283; A9270-GY; J0456; J1100; J1815-GY; J3490; J7030; J7040; J7050; J7620-GY; J8540